=== PATIENT | female | born 1940 | race Asian ===

== ENCOUNTER → 2018-09-13 | Day surgery (SDC) | payer MEDICARE ==
[2018-09-10 11:37] LABS: BASOPHILS # (AUTO) 0.1 (0.0-0.1); BASOPHILS % 0.5 % (0.0-1.0); EOSINOPHILS # (AUTO) 0.2 (0.0-0.4); EOSINOPHILS % 1.1 % (0.0-6.0); HEMATOCRIT 38.7 % (34.2-44.1); HEMOGLOBIN 11.9 g/dL (12.0-16.0); LYMPHOCYTES % 13.9 % (18.0-39.1); MEAN CORPUSCULAR HEMOGLOBIN 26.9 pg (28-32); MEAN CORPUSCULAR HGB CONC 30.7 g/dL (31-35); MEAN CORPUSCULAR VOLUME 87.6 fL (81-99); MONOCYTES # (AUTO) 1.5 (0.2-0.8); NEUTROPHILS # (AUTO) 10.7 (2.1-6.9); NEUTROPHILS % 73.7 % (38.7-80.0); PLATELET COUNT 386 x10e3/uL (140-360); RED BLOOD COUNT 4.42 x10e6/uL (3.6-5.1); RED CELL DISTRIBUTION WIDTH 16.2 % (11.7-14.4)
[2018-09-10 11:53] LABS: ANION GAP 21.2 mmol/L (8-16); CALCIUM 10.5 mg/dL (8.4-10.2); CREATININE, SERUM 1.37 mg/dL (0.57-1.11); POTASSIUM 4.2 mmol/L (3.5-5.1)
--- NOTE | 2018-09-10 12:50 | Diagnostic Imaging Report ---
Exam: KUB - 2 views Clinical History: Preoperative Comparison: None Findings: Pigtail drainage catheter projects over the left mid abdomen. Nonobstructive bowel gas pattern. At least 3 calcifications measuring 5 mm, 8 mm, and 9 mm respectively projecting over the expected course of the left kidney and ureter and possibly represent urinary calculi. Phleboliths within the pelvis. Degenerative changes of the visualized spine. Postoperative fixation of the left proximal femur. Impression: 5, 8, 9 mm calcifications projecting over the expected course of the left kidney and ureter possibly represent urinary calculi. Signed by: Faviola Paz MD on 09/10/2018 12:47 PM
--- NOTE | 2018-09-10 12:51 | Diagnostic Imaging Report ---
EXAMINATION: CHEST 2 VIEWS INDICATION: Pre-operative COMPARISON: None FINDINGS: LINES/TUBES:None LUNGS:The lungs are well-inflated. No focal consolidation or pulmonary edema. PLEURA:No pleural effusion or pneumothorax. MEDIASTINUM:The cardiomediastinal silhouette appears normal in size and shape. Atherosclerotic calcifications of the thoracic aorta. BONES/SOFT TISSUES:No acute osseous injury. ABDOMEN:No free air under the diaphragm. IMPRESSION: No focal pneumonia or pulmonary edema. Signed by: Faviola Paz MD on 09/10/2018 12:48 PM
[~2018-09-13] MED LIST: AMIODARONE HCL200 MG PO; ASPIR 8181 MG PO; DEXAMETHASONE SOD PHOS INJ 4 MG/ML VIAL ONE; ELIQUIS PO; FENTANYL CITRATE/PF 100MCG/2 ML INJ ONE; GENTAMICIN 120MG/NS 100ML 100 ML ONE; GLIPIZIDE5 MG PO; IOPAMIDOL 610MG/1ML 300 MG/ML VIAL IV ONE; LIDOCAINE HCL 2% LOCAL INJ 5 ML SDV VIAL INJ ONE; METFORMIN HCL500 MG PO; NIFEDIPINE ER30 M1 PO; ONDANSETRON HCL INJ 2MG/ML 2ML 2 MG/ML VIAL ONE; PROPOFOL IV EMULSION 10 MG/ML 20 ML VIAL ONE; SEVOFLURANE INHAL SOLN 250 ML PEN BTL ONE
--- OUTSIDE RECORDS SUMMARY | 2018-09-13 06:34 | XMS REPORT ---
[facility] Address Unknown Phone Unavailable Care Team Providers [employer] Name Role Phone JORDEN COLLINS Unavailable Unavailable Payers Payer Name Policy Type Policy Number Effective Date Expiration Date Problems This patient has no known problems. Allergies, Adverse Reactions, Alerts Allergy Name Allergy Type Status Severity Reaction(s) Onset Date Inactive Date Treating Clinician Comments No Known Allergies DA Active U 2018-03-19 00:00:00 No Known Allergies DA Active U 2015-04-04 00:00:00 Medications This patient has no known medications. Results Test Description Test Time Test Comments Text Results Atomic Results Result Comments CHEST 2 VIEWS 2018-09-10 12:47:00 [place] [address] Patient Name: EULALIA CARLSON MR #: [id number] : 1940 Age/Sex: 77/F Req #: [id number] Adm Physician: Ordered by: JORDEN COLLINS MD Report #: [id number] Location: OR Room/Bed: Procedure: [id number] DX/CHEST 2 VIEWS Exam Date: 09/10/18 Exam Time: 1142 REPORT STATUS: Signed EXAMINATION: CHEST 2 VIEWS INDICATION: Pre-operative COMPARISON: None FINDINGS: LINES/TUBES:None LUNGS:The lungs are well-inflated. No focal consolidation or pulmonary edema. PLEURA:No pleural effusion or pneumothorax. MEDIASTINUM:The cardiomediastinal silhouette appears normal in size and shape. Atherosclerotic calcifications of the thoracic aorta. BONES/SOFT TISSUES:No acute osseous injury. ABDOMEN:No free air under the diaphragm. IMPRESSION: No focal pneumonia or pulmonary edema. Signed by: Eloy May MD on 09/10/2018 12:48 PM Dictated By: ELOY MAY MD 124 Transcribed By: VAHID on 09/10/18 124 COPY TO: JORDEN COLLINS MD ABDOMEN-1VIEW (KUB) 2018-09-10 12:44:00 [place] [address] Patient Name: EULALIA CARLSON MR #: [id number] : 1940 Age/Sex: 77/F Req #: [id number] Adm Physician: Ordered by: JORDEN COLLINS MD Report #: [id number] Location: OR Room/Bed: Procedure: [id number] DX/ABDOMEN-1VIEW (KUB) Exam Date: 09/10/18 Exam Time: 1142 REPORT STATUS: Signed Exam: KUB - 2 views Clinical History: Preoperative Comparison: None Findings: Pigtail drainage catheter projects over the left mid abdomen. Nonobstructive bowel gas pattern. At least 3 calcifications measuring 5 mm, 8 mm, and 9 mm respectively projecting over the expected course of the left kidney and ureter and possibly represent urinary calculi. Phleboliths within the pelvis. Degenerative changes of the visualized spine. Postoperative fixation of the left proximal femur. Impression: 5, 8, 9 mm calcifications projecting over the expected course of the left kidney and ureter possibly represent urinary calculi. Signed by: Eloy May MD on 09/10/2018 12:47 PM Dictated By: ELOY MAY MD 1247 Transcribed By: VAHID on 09/10/18 1247 COPY TO: JORDEN COLLINS MD POC Glucose 2018-08-05 16:17:16 Glucose POC (test code=Glucose POC) 65 mg/dL 70-115 If you consider your patient critically ill, the Diana-Accu Check Infrom II meter should not be used for Glucose determination. Draw a venous Glucose and send to the main Lab for analysis. POC [id number] 11:19:47* Test Item Value Reference Range Comments Glucose POC (test code=Glucose POC) 283 mg/dL 70-115 If you consider your patient critically ill, the Diana-Accu Check Infrom II meter should not be used for Glucose determination. Draw a venous Glucose and send to the main Lab for analysis. POC [id number] 07:49:43* Test Item Value Reference Range Comments Glucose POC (test code=Glucose POC) 174 mg/dL 70-115 If you consider your patient critically ill, the Diana-Accu Check Infrom II meter should not be used for Glucose determination. Draw a venous Glucose and send to the main Lab for analysis. Complete Blood Count with [id number] 05:36:01* Test Item Value Reference Range Comments WBC (test code=WBC) 11.2 x10 4.4-10.5 RBC (test code=RBC) 3.55 x10 3.75-5.20 Hgb (test code=Hgb) 9.6 g/dL 12.2-14.8 MCV (test code=MCV) 84.50 fL 80.00-100.00 Hct (test code=Hct) 30.0 % 36.5-44.4 MCHC (test code=MCHC) 32.00 g/dL 32.00-37.50 RDW CV (test code=RDW CV) 16.9 % 11.5-14.5 MCH (test code=MCH) 27.0 pg 27.0-32.5 Platelets (test code=Platelets) 385.0 x10 140.0-440.0 MPV (test code=MPV) 9.7 fL Slide Review (test code=Slide Review) Auto Auto Result created by GL_SJM_SLIDE_REV_AUTO nRBC (test code=nRBC) 0 NRBC Abs (test code=NRBC Abs) 0.00 x10 IPF (test code=IPF) 0 % Automated [id number] 05:36:01* Test Item Value Reference Range Comments Neutro Auto (test code=Neutro Auto) 76.2 % 36.0-70.0 Lymph Auto (test code=Lymph Auto) 9.7 % 12.0-44.0 [place] Auto (test code=[place] Auto) 10.5 % 0.0-11.0 Eos, Auto (test code=Eos, Auto) 2.0 % 0.0-7.0 Basophil Auto (test code=Basophil Auto) 0.4 % 0.0-2.0 Neutro Absolute (test code=Neutro Absolute) 8.6 x10 1.6-7.4 Lymph Absolute (test code=Lymph Absolute) 1.09 x10 .50-4.60 [place] Absolute (test code=[place] Absolute) 1.18 x10 .00-1.20 Eos Absolute (test code=Eos Absolute) 0.22 x10 0.00-0.74 Baso Absolute (test code=Baso Absolute) 0.04 x10 0.00-0.21 IG [id number] 05:36:01* Test Item Value Reference Range Comments IG (test code=IG) 1.2 % 0.0-5.0 IG Abs (test code=IG Abs) 0 x10 Comprehensive Metabolic [id number] 05:29:29* Test Item Value Reference Range Comments Sodium Level (test code=Sodium Level) 142.0 mmol/L 135.0-145.0 Potassium Level (test code=Potassium Level) 3.0 mmol/L 3.5-5.1 Chloride Level (test code=Chloride Level) 101 mmol/L 98-105 CO2 (test code=CO2) 27 mmol/L 22-29 Anion Gap (test code=Anion Gap) 14 mmol/L 7-16 BUN (test code=BUN) 9.20 mg/dL 8.00-23.00 Creatinine Level (test code=Creatinine Level) 0.60 mg/dL 0.50-0.90 BUN/Creat Ratio (test code=BUN/Creat Ratio) 15 Glucose Level (test code=Glucose Level) 163 mg/dL 70-115 Calcium Level (test code=Calcium Level) 8.9 mg/dL 8.3-10.5 Alk Phos (test code=Alk Phos) 68 U/L 35-104 Bilirubin Total (test code=Bilirubin Total) 0.3 mg/dL 0.1-0.9 Albumin Level (test code=Albumin Level) 3.6 g/dL 3.5-5.2 Protein Total (test code=Protein Total) 6.5 g/dL 6.4-8.3 ALT (test code=ALT) 13 U/L 1-33 AST (test code=AST) 13 U/L 1-32 Globulin (test code=Globulin) 2.9 g/dL 2.9-3.1 A/G Ratio (test code=A/G Ratio) 1.2 ratio Comprehensive Metabolic [id number] 05:29:29* Test Item Value Reference Range Comments Sodium Level (test code=Sodium Level) 142.0 mmol/L 135.0-145.0 Potassium Level (test code=Potassium Level) 3.0 mmol/L 3.5-5.1 Chloride Level (test code=Chloride Level) 101 mmol/L 98-105 CO2 (test code=CO2) 27 mmol/L 22-29 Anion Gap (test code=Anion Gap) 14 mmol/L 7-16 BUN (test code=BUN) 9.20 mg/dL 8.00-23.00 Creatinine Level (test code=Creatinine Level) 0.60 mg/dL 0.50-0.90 BUN/Creat Ratio (test code=BUN/Creat Ratio) 15 Glucose Level (test code=Glucose Level) 163 mg/dL 70-115 Calcium Level (test code=Calcium Level) 8.9 mg/dL 8.3-10.5 Alk Phos (test code=Alk Phos) 68 U/L 35-104 Bilirubin Total (test code=Bilirubin Total) 0.3 mg/dL 0.1-0.9 Albumin Level (test code=Albumin Level) 3.6 g/dL 3.5-5.2 Protein Total (test code=Protein Total) 6.5 g/dL 6.4-8.3 ALT (test code=ALT) 13 U/L 1-33 AST (test code=AST) 13 U/L 1-32 Globulin (test code=Globulin) 2.9 g/dL 2.9-3.1 A/G Ratio (test code=A/G Ratio) 1.2 ratio eGFR AA (test code=eGFR AA) >60 mL/min/1.73 m2 eGFR (estimated Glomerular Filtration Rate) is an estimated value, calculated from the patient's serum creatinine using the MDRD equation. It is NOT the patient's actual GFR. The eGFR provides a more clinically useful measure of kidney disease than serum creatinine alone.This calculation takes sex and race into account, if the information is provided. If the race is not provided, and the patient is -[place], multiply by 1.212. If sex is not provided, and the patient is female, multiply by 0.742. Results for patients <18 years of age have not been validated by the MDRD study and should be interpreted with caution. eGFR Result Interpretation:eGFR > or=60 is in the Normal RangeeGFR < 60 may mean kidney diseaseeGFR < 15 may mean kidney failure Ranges recommended by the National Kidney Foundation, http://nkdep.nih.gov Magnesium [id number] 05:29:29* Test Item Value Reference Range Comments Magnesium Level (test code=Magnesium Level) 1.5 mg/dL 1.7-2.5 Comprehensive Metabolic [id number] 05:29:29* Test Item Value Reference Range Comments Sodium Level (test code=Sodium Level) 142.0 mmol/L 135.0-145.0 Potassium Level (test code=Potassium Level) 3.0 mmol/L 3.5-5.1 Chloride Level (test code=Chloride Level) 101 mmol/L 98-105 CO2 (test code=CO2) 27 mmol/L 22-29 Anion Gap (test code=Anion Gap) 14 mmol/L 7-16 BUN (test code=BUN) 9.20 mg/dL 8.00-23.00 Creatinine Level (test code=Creatinine Level) 0.60 mg/dL 0.50-0.90 BUN/Creat Ratio (test code=BUN/Creat Ratio) 15 Glucose Level (test code=Glucose Level) 163 mg/dL 70-115 Calcium Level (test code=Calcium Level) 8.9 mg/dL 8.3-10.5 Alk Phos (test code=Alk Phos) 68 U/L 35-104 Bilirubin Total (test code=Bilirubin Total) 0.3 mg/dL 0.1-0.9 Albumin Level (test code=Albumin Level) 3.6 g/dL 3.5-5.2 Protein Total (test code=Protein Total) 6.5 g/dL 6.4-8.3 ALT (test code=ALT) 13 U/L 1-33 AST (test code=AST) 13 U/L 1-32 Globulin (test code=Globulin) 2.9 g/dL 2.9-3.1 A/G Ratio (test code=A/G Ratio) 1.2 ratio eGFR AA (test code=eGFR AA) >60 mL/min/1.73 m2 eGFR (estimated Glomerular Filtration Rate) is an estimated value, calculated from the patient's serum creatinine using the MDRD equation. It is NOT the patient's actual GFR. The eGFR provides a more clinically useful measure of kidney disease than serum creatinine alone.This calculation takes sex and race into account, if the information is provided. If the race is not provided, and the patient is -[place]aced[place], multiply by 1.212. If sex is not provided, and the patient is female, multiply by 0.742. Results for patients <18 years of age have not been validated by the MDRD study and should be interpreted with caution. eGFR Result Interpretation:eGFR > or=60 is in the Normal RangeeGFR < 60 may mean kidney diseaseeGFR < 15 may mean kidney failure Ranges recommended by the National Kidney Foundation, http://nkdep.nih.gov eGFR Non-AA (test code=eGFR Non-AA) >60.00 mL/min/1.73 m2 eGFR (estimated Glomerular Filtration Rate) is an estimated value, calculated from the patient's serum creatinine using the MDRD equation. It is NOT the patient's actual GFR. The eGFR provides a more clinically useful measure of kidney disease than serum creatinine alone.This calculation takes sex and race into account, if the information is provided. If the race is not provided, and the patient is -[place]aced[place], multiply by 1.212. If sex is not provided, and the patient is female, multiply by 0.742. Results for patients <18 years of age have not been validated by the MDRD study and should be interpreted with caution. eGFR Result Interpretation:eGFR > or=60 is in the Normal RangeeGFR < 60 may mean kidney diseaseeGFR < 15 may mean kidney failure Ranges recommended by the National Kidney Foundation, http://nkdep.nih.gov POC [id number] 20:34:17* Test Item Value Reference Range Comments Glucose POC (test code=Glucose POC) 271 mg/dL 70-115 If you consider your patient critically ill, the Diana-Accu Check Infrom II meter should not be used for Glucose determination. Draw a venous Glucose and send to the main Lab for analysis. POC [id number] 16:22:16* Test Item Value Reference Range Comments Glucose POC (test code=Glucose POC) 116 mg/dL 70-115 Notify RN or MDIf you consider your patient critically ill, the Diana-Accu Check Infrom II meter should not be used for Glucose determination. Draw a venous Glucose and send to the main Lab for analysis. POC [id number] 11:21:22* Test Item Value Reference Range Comments Glucose POC (test code=Glucose POC) 284 mg/dL 70-115 Notify RN or MDIf you consider your patient critically ill, the Diana-Accu Check Infrom II meter should not be used for Glucose determination. Draw a venous Glucose and send to the main Lab for analysis. POC [id number] 07:41:12* Test Item Value Reference Range Comments Glucose POC (test code=Glucose POC) 161 mg/dL 70-115 Notify RN or MDIf you consider your patient critically ill, the Diana-Accu Check Infrom II meter should not be used for Glucose determination. Draw a venous Glucose and send to the main Lab for analysis. Basic Metabolic [id number] 07:04:38* Test Item Value Reference Range Comments Sodium Level (test code=Sodium Level) 143.0 mmol/L 135.0-145.0 Potassium Level (test code=Potassium Level) 3.6 mmol/L 3.5-5.1 Chloride Level (test code=Chloride Level) 106 mmol/L 98-105 CO2 (test code=CO2) 23 mmol/L 22-29 Anion Gap (test code=Anion Gap) 14 mmol/L 7-16 BUN (test code=BUN) 8.60 mg/dL 8.00-23.00 Creatinine Level (test code=Creatinine Level) 0.60 mg/dL 0.50-0.90 BUN/Creat Ratio (test code=BUN/Creat Ratio) 14 Glucose Level (test code=Glucose Level) 162 mg/dL 70-115 Calcium Level (test code=Calcium Level) 8.8 mg/dL 8.3-10.5 Basic Metabolic [id number] 07:04:38* Test Item Value Reference Range Comments Sodium Level (test code=Sodium Level) 143.0 mmol/L 135.0-145.0 Potassium Level (test code=Potassium Level) 3.6 mmol/L 3.5-5.1 Chloride Level (test code=Chloride Level) 106 mmol/L 98-105 CO2 (test code=CO2) 23 mmol/L 22-29 Anion Gap (test code=Anion Gap) 14 mmol/L 7-16 BUN (test code=BUN) 8.60 mg/dL 8.00-23.00 Creatinine Level (test code=Creatinine Level) 0.60 mg/dL 0.50-0.90 BUN/Creat Ratio (test code=BUN/Creat Ratio) 14 Glucose Level (test code=Glucose Level) 162 mg/dL 70-115 Calcium Level (test code=Calcium Level) 8.8 mg/dL 8.3-10.5 eGFR AA (test code=eGFR AA) >60 mL/min/1.73 m2 eGFR (estimated Glomerular Filtration Rate) is an estimated value, calculated from the patient's serum creatinine using the MDRD equation. It is NOT the patient's actual GFR. The eGFR provides a more clinically useful measure of kidney disease than serum creatinine alone.This calculation takes sex and race into account, if the information is provided. If the race is not provided, and the patient is -[place]aced[place], multiply by 1.212. If sex is not provided, and the patient is female, multiply by 0.742. Results for patients <18 years of age have not been validated by the MDRD study and should be interpreted with caution. eGFR Result Interpretation:eGFR > or=60 is in the Normal RangeeGFR < 60 may mean kidney diseaseeGFR < 15 may mean kidney failure Ranges recommended by the National Kidney Foundation, http://nkdep.nih.gov Basic Metabolic [id number] 07:04:38* Test Item Value Reference Range Comments Sodium Level (test code=Sodium Level) 143.0 mmol/L 135.0-145.0 Potassium Level (test code=Potassium Level) 3.6 mmol/L 3.5-5.1 Chloride Level (test code=Chloride Level) 106 mmol/L 98-105 CO2 (test code=CO2) 23 mmol/L 22-29 Anion Gap (test code=Anion Gap) 14 mmol/L 7-16 BUN (test code=BUN) 8.60 mg/dL 8.00-23.00 Creatinine Level (test code=Creatinine Level) 0.60 mg/dL 0.50-0.90 BUN/Creat Ratio (test code=BUN/Creat Ratio) 14 Glucose Level (test code=Glucose Level) 162 mg/dL 70-115 Calcium Level (test code=Calcium Level) 8.8 mg/dL 8.3-10.5 eGFR AA (test code=eGFR AA) >60 mL/min/1.73 m2 eGFR (estimated Glomerular Filtration Rate) is an estimated value, calculated from the patient's serum creatinine using the MDRD equation. It is NOT the patient's actual GFR. The eGFR provides a more clinically useful measure of kidney disease than serum creatinine alone.This calculation takes sex and race into account, if the information is provided. If the race is not provided, and the patient is -[place], multiply by 1.212. If sex is not provided, and the patient is female, multiply by 0.742. Results for patients <18 years of age have not been validated by the MDRD study and should be interpreted with caution. eGFR Result Interpretation:eGFR > or=60 is in the Normal RangeeGFR < 60 may mean kidney diseaseeGFR < 15 may mean kidney failure Ranges recommended by the National Kidney Foundation, http://nkdep.nih.gov eGFR Non-AA (test code=eGFR Non-AA) >60.00 mL/min/1.73 m2 eGFR (estimated Glomerular Filtration Rate) is an estimated value, calculated from the patient's serum creatinine using the MDRD equation. It is NOT the patient's actual GFR. The eGFR provides a more clinically useful measure of kidney disease than serum creatinine alone.This calculation takes sex and race into account, if the information is provided. If the race is not provided, and the patient is -[place], multiply by 1.212. If sex is not provided, and the patient is female, multiply by 0.742. Results for patients <18 years of age have not been validated by the MDRD study and should be interpreted with caution. eGFR Result Interpretation:eGFR > or=60 is in the Normal RangeeGFR < 60 may mean kidney diseaseeGFR < 15 may mean kidney failure Ranges recommended by the National Kidney Foundation, http://nkdep.nih.gov Complete Blood Count with [id number] 06:36:27* Test Item Value Reference Range Comments WBC (test code=WBC) 12.8 x10 4.4-10.5 RBC (test code=RBC) 3.52 x10 3.75-5.20 Hgb (test code=Hgb) 9.5 g/dL 12.2-14.8 MCV (test code=MCV) 87.50 fL 80.00-100.00 Hct (test code=Hct) 30.8 % 36.5-44.4 MCHC (test code=MCHC) 30.80 g/dL 32.00-37.50 RDW CV (test code=RDW CV) 17.2 % 11.5-14.5 MCH (test code=MCH) 27.0 pg 27.0-32.5 Platelets (test code=Platelets) 321.0 x10 140.0-440.0 MPV (test code=MPV) 10.7 fL Slide Review (test code=Slide Review) Auto Auto Result created by GL_SJM_SLIDE_REV_AUTO GL_SJM_XN_RFLX GL_SJM_XN_RFLX nRBC (test code=nRBC) 0 NRBC Abs (test code=NRBC Abs) 0.00 x10 Pos Count XN (test code=Pos Count XN) A IPF (test code=IPF) 0 % Automated [id number] 06:36:27* Test Item Value Reference Range Comments Neutro Auto (test code=Neutro Auto) 80.9 % 36.0-70.0 Lymph Auto (test code=Lymph Auto) 7.3 % 12.0-44.0 [place] Auto (test code=[place] Auto) 10.3 % 0.0-11.0 Eos, Auto (test code=Eos, Auto) 0.7 % 0.0-7.0 Basophil Auto (test code=Basophil Auto) 0.2 % 0.0-2.0 Neutro Absolute (test code=Neutro Absolute) 10.3 x10 1.6-7.4 Lymph Absolute (test code=Lymph Absolute) .93 x10 .50-4.60 [place] Absolute (test code=[place] Absolute) 1.32 x10 .00-1.20 Eos Absolute (test code=Eos Absolute) 0.09 x10 0.00-0.74 Baso Absolute (test code=Baso Absolute) 0.02 x10 0.00-0.21 IG [id number] 06:36:27* Test Item Value Reference Range Comments IG (test code=IG) 0.6 % 0.0-5.0 IG Abs (test code=IG Abs) 0 x10 POC [id number] 20:55:50* Test Item Value Reference Range Comments Glucose POC (test code=Glucose POC) 197 mg/dL 70-115 If you consider your patient critically ill, the Diana-Accu Check Infrom II meter should not be used for Glucose determination. Draw a venous Glucose and send to the main Lab for analysis. POC [id number] 16:27:20* Test Item Value Reference Range Comments Glucose POC (test code=Glucose POC) 168 mg/dL 70-115 If you consider your patient critically ill, the Diana-Accu Check Infrom II meter should not be used for Glucose determination. Draw a venous Glucose and send to the main Lab for analysis. XR Fluoroscopy in Imaging per [id number] 13:30:49Patient: EULALIA CARLSON Date/Time08/03/2018 11:36 CDTReason for ExamsurgeryReportFLUOROSCOPYCLINICAL HISTORY: surgeryComments: Intraoperative fluoroscopy services were provided. A radiologist was not present for the procedure. Selected images demonstrate screw placement across the left hip..Total fluoroscopy time: 20 seconds. Image count: 4IMPRESSION:Fluoroscopy services provided. Please see separate operative report for detailed findings.Location: R16 Final Dictated by: MD Castellanos Adam FDictated DT/TM: 08/03/2018 1:29 pmSigned by: MD Castellanos Adam FSigned (Electronic Signature): 08/03/2018 1:30 pmPOC [id number] 12:21:14* Test Item Value Reference Range Comments Glucose POC (test code=Glucose POC) 152 mg/dL 70-115 If you consider your patient critically ill, the Diana-Accu Check Infrom II meter should not be used for Glucose determination. Draw a venous Glucose and send to the main Lab for analysis. POC [id number] 07:39:15* Test Item Value Reference Range Comments Glucose POC (test code=Glucose POC) 160 mg/dL 70-115 If you consider your patient critically ill, the Diana-Accu Check Infrom II meter should not be used for Glucose determination. Draw a venous Glucose and send to the main Lab for analysis. Comprehensive Metabolic [id number] 06:18:46* Test Item Value Reference Range Comments Sodium Level (test code=Sodium Level) 146.0 mmol/L 135.0-145.0 Potassium Level (test code=Potassium Level) 3.9 mmol/L 3.5-5.1 Chloride Level (test code=Chloride Level) 106 mmol/L 98-105 CO2 (test code=CO2) 28 mmol/L 22-29 Anion Gap (test code=Anion Gap) 12 mmol/L 7-16 BUN (test code=BUN) 8.80 mg/dL 8.00-23.00 Creatinine Level (test code=Creatinine Level) 0.70 mg/dL 0.50-0.90 BUN/Creat Ratio (test code=BUN/Creat Ratio) 13 Glucose Level (test code=Glucose Level) 159 mg/dL 70-115 Calcium Level (test code=Calcium Level) 9.4 mg/dL 8.3-10.5 Alk Phos (test code=Alk Phos) 66 U/L 35-104 Bilirubin Total (test code=Bilirubin Total) 0.4 mg/dL 0.1-0.9 Albumin Level (test code=Albumin Level) 3.9 g/dL 3.5-5.2 Protein Total (test code=Protein Total) 7.1 g/dL 6.4-8.3 ALT (test code=ALT) 15 U/L 1-33 AST (test code=AST) 13 U/L 1-32 Globulin (test code=Globulin) 3.2 g/dL 2.9-3.1 A/G Ratio (test code=A/G Ratio) 1.2 ratio Magnesium [id number] 06:18:46* Test Item Value Reference Range Comments Magnesium Level (test code=Magnesium Level) 1.6 mg/dL 1.7-2.5 Comprehensive Metabolic [id number] 06:18:46* Test Item Value Reference Range Comments Sodium Level (test code=Sodium Level) 146.0 mmol/L 135.0-145.0 Potassium Level (test code=Potassium Level) 3.9 mmol/L 3.5-5.1 Chloride Level (test code=Chloride Level) 106 mmol/L 98-105 CO2 (test code=CO2) 28 mmol/L 22-29 Anion Gap (test code=Anion Gap) 12 mmol/L 7-16 BUN (test code=BUN) 8.80 mg/dL 8.00-23.00 Creatinine Level (test code=Creatinine Level) 0.70 mg/dL 0.50-0.90 BUN/Creat Ratio (test code=BUN/Creat Ratio) 13 Glucose Level (test code=Glucose Level) 159 mg/dL 70-115 Calcium Level (test code=Calcium Level) 9.4 mg/dL 8.3-10.5 Alk Phos (test code=Alk Phos) 66 U/L 35-104 Bilirubin Total (test code=Bilirubin Total) 0.4 mg/dL 0.1-0.9 Albumin Level (test code=Albumin Level) 3.9 g/dL 3.5-5.2 Protein Total (test code=Protein Total) 7.1 g/dL 6.4-8.3 ALT (test code=ALT) 15 U/L 1-33 AST (test code=AST) 13 U/L 1-32 Globulin (test code=Globulin) 3.2 g/dL 2.9-3.1 A/G Ratio (test code=A/G Ratio) 1.2 ratio eGFR AA (test code=eGFR AA) >60 mL/min/1.73 m2 eGFR (estimated Glomerular Filtration Rate) is an estimated value, calculated from the patient's serum creatinine using the MDRD equation. It is NOT the patient's actual GFR. The eGFR provides a more clinically useful measure of kidney disease than serum creatinine alone.This calculation takes sex and race into account, if the information is provided. If the race is not provided, and the patient is -[place], multiply by 1.212. If sex is not provided, and the patient is female, multiply by 0.742. Results for patients <18 years of age have not been validated by the MDRD study and should be interpreted with caution. eGFR Result Interpretation:eGFR > or=60 is in the Normal RangeeGFR < 60 may mean kidney diseaseeGFR < 15 may mean kidney failure Ranges recommended by the National Kidney Foundation, http://nkdep.nih.gov Comprehensive Metabolic [id number] 06:18:46* Test Item Value Reference Range Comments Sodium Level (test code=Sodium Level) 146.0 mmol/L 135.0-145.0 Potassium Level (test code=Potassium Level) 3.9 mmol/L 3.5-5.1 Chloride Level (test code=Chloride Level) 106 mmol/L 98-105 CO2 (test code=CO2) 28 mmol/L 22-29 Anion Gap (test code=Anion Gap) 12 mmol/L 7-16 BUN (test code=BUN) 8.80 mg/dL 8.00-23.00 Creatinine Level (test code=Creatinine Level) 0.70 mg/dL 0.50-0.90 BUN/Creat Ratio (test code=BUN/Creat Ratio) 13 Glucose Level (test code=Glucose Level) 159 mg/dL 70-115 Calcium Level (test code=Calcium Level) 9.4 mg/dL 8.3-10.5 Alk Phos (test code=Alk Phos) 66 U/L 35-104 Bilirubin Total (test code=Bilirubin Total) 0.4 mg/dL 0.1-0.9 Albumin Level (test code=Albumin Level) 3.9 g/dL 3.5-5.2 Protein Total (test code=Protein Total) 7.1 g/dL 6.4-8.3 ALT (test code=ALT) 15 U/L 1-33 AST (test code=AST) 13 U/L 1-32 Globulin (test code=Globulin) 3.2 g/dL 2.9-3.1 A/G Ratio (test code=A/G Ratio) 1.2 ratio eGFR AA (test code=eGFR AA) >60 mL/min/1.73 m2 eGFR (estimated Glomerular Filtration Rate) is an estimated value, calculated from the patient's serum creatinine using the MDRD equation. It is NOT the patient's actual GFR. The eGFR provides a more clinically useful measure of kidney disease than serum creatinine alone.This calculation takes sex and race into account, if the information is provided. If the race is not provided, and the patient is -Maced[place], multiply by 1.212. If sex is not provided, and the patient is female, multiply by 0.742. Results for patients <18 years of age have not been validated by the MDRD study and should be interpreted with caution. eGFR Result Interpretation:eGFR > or=60 is in the Normal RangeeGFR < 60 may mean kidney diseaseeGFR < 15 may mean kidney failure Ranges recommended by the National Kidney Foundation, http://nkdep.nih.gov eGFR Non-AA (test code=eGFR Non-AA) >60.00 mL/min/1.73 m2 eGFR (estimated Glomerular Filtration Rate) is an estimated value, calculated from the patient's serum creatinine using the MDRD equation. It is NOT the patient's actual GFR. The eGFR provides a more clinically useful measure of kidney disease than serum creatinine alone.This calculation takes sex and race into account, if the information is provided. If the race is not provided, and the patient is -Maced[place], multiply by 1.212. If sex is not provided, and the patient is female, multiply by 0.742. Results for patients <18 years of age have not been validated by the MDRD study and should be interpreted with caution. eGFR Result Interpretation:eGFR > or=60 is in the Normal RangeeGFR < 60 may mean kidney diseaseeGFR < 15 may mean kidney failure Ranges recommended by the National Kidney Foundation, http://nkdep.nih.gov Automated [id number] 06:03:39* Test Item Value Reference Range Comments Neutro Auto (test code=Neutro Auto) 79.1 % 36.0-70.0 Lymph Auto (test code=Lymph Auto) 9.8 % 12.0-44.0 [place] Auto (test code=[place] Auto) 8.3 % 0.0-11.0 Eos, Auto (test code=Eos, Auto) 1.6 % 0.0-7.0 Basophil Auto (test code=Basophil Auto) 0.5 % 0.0-2.0 Neutro Absolute (test code=Neutro Absolute) 7.7 x10 1.6-7.4 Lymph Absolute (test code=Lymph Absolute) .95 x10 .50-4.60 [place] Absolute (test code=[place] Absolute) .81 x10 .00-1.20 Eos Absolute (test code=Eos Absolute) 0.16 x10 0.00-0.74 Baso Absolute (test code=Baso Absolute) 0.05 x10 0.00-0.21 IG [id number] 06:03:39* Test Item Value Reference Range Comments IG (test code=IG) 0.7 % 0.0-5.0 IG Abs (test code=IG Abs) 0 x10 Complete Blood Count with [id number] 06:03:38* Test Item Value Reference Range Comments WBC (test code=WBC) 9.7 x10 4.4-10.5 RBC (test code=RBC) 4.07 x10 3.75-5.20 Hgb (test code=Hgb) 11.0 g/dL 12.2-14.8 MCV (test code=MCV) 84.80 fL 80.00-100.00 Hct (test code=Hct) 34.5 % 36.5-44.4 MCHC (test code=MCHC) 31.90 g/dL 32.00-37.50 RDW CV (test code=RDW CV) 17.2 % 11.5-14.5 MCH (test code=MCH) 27.0 pg 27.0-32.5 Platelets (test code=Platelets) 374.0 x10 140.0-440.0 MPV (test code=MPV) 9.6 fL Slide Review (test code=Slide Review) Auto Auto Result created by [email or web address] nRBC (test code=nRBC) 0 NRBC Abs (test code=NRBC Abs) 0.00 x10 IPF (test code=IPF) 0 % XR Hip Complete 2+ Views [id number] 23:35:10Patient: EULALIA CARLSON Date/Time08/02/2018 23:12 CDTReason for ExamTraumaReportAFTER HOURS SERVICE ON: 08/02/2018 11:33 PMLeft Hip, 3 ViewsLocation Code P67Vtollyh: TraumaFindings:Study is limited by osteopenia. There is a suspected femoral neck fracture. There is mild joint space narrowing of the femoral acetabular joint.Impression:Suspected impacted femoral neck fracture. Follow-up CT recommended. Final Dictated by: MD Glover Mohammad TDictated DT/TM: 08/02/2018 11:33 pmSigned by: MD Glover Mohammad TSigned (Electronic Signature): 08/02/2018 11:35 pmCT Angio Abdomen Aorta + [id number] 22:20:03Patient: EULALIA CARLSON Date/Time08/02/2018 20:46 CDTReason for ExamLLE pain, eval for vessel injury vs hip fracture;Pain (please specify)AddendumUpon speaking with the physician, patient history includes falling several days prior, with great difficulty in weightbearing upon the left hip. She reports never having had a fracture at that site in the past. Finding may represent an occult acute fracture. Consider MRI.ReportLocation code: R 16CT Angiogram Of the Abdominal AortaIndication: Aneurysm, aortic dissection.Comparison: NoneTechnique: Axial images were obtained with sagittal, coronal, and 3 dimensional vascular reconstruction. Three-dimensional recon struction of the thoracoabdominal aorta.This exam was performed according to our departmental dose-optimization program, which includes automated exposure contr ol, adjustment of the mA and/or kV according to patient size and/or use of itera tive reconstruction technique.Contrast: 100 cc Omnipaque 350 IV..Findings:Soft t issue masses in the right lower lobe measure up to 3.1 cm in diameter. 6 mm nodu le in the right middle lobe and 4.2 mm nodule in the left lower lobe. No pleural effusion.Single punctate gallstone. Mild sludge may present in the gallbladder. Liver, drenal gland,Liver, bowel, uterus and urinary bladder are unremarkable. Mild levoscoliosis. Disc space narrowing and spondylosis throughout the visualiz ed thoracic and lumbar spine. Severe posterior spondylosis at L4-5 with moderate narrowing of the central canal. Deformity of the left femoral head and femoral neck, consistent with old fracture. No evidence of acute fracture.Moderate left hydronephrosis. Left external nephrostomy tube in place. The pigtail catheter pr ojects over the proximal ureter. Focal cortical thinning at the lateral aspect o f the upper left kidney likely secondary to old infection. The left ureter is di stended and several calculi are present in the pelvic ureter, measuring up to 11 mm in size.Right renal parenchyma is normal in appearance. 2 punctate nonobstru cting right renal calculi.A 4.2 x 3.4 x 3.6 cm mildly lobulated thin-walled cyst ic-appearing structure at the posterior gastric margin contains a few punctate f oci of increased density and a single dot of air. Finding may represent small he rniation of the gastric wall.Abdominal aorta is not distended and tapers in norm al fashion. Mild atherosclerotic involvement. Origins of the superior mesenteric and celiac arteries are clear. Mild calcification at the origin of both renal a rteries. Internal and external iliac arteries are patent. No evidence of dissect ion or aneurysm formation. Common femoral, superficial femoral, deep femoral, po pliteal, anterior tibial, peroneal, and posterior tibial arteries are patent anayeli aterally with no evidence of stenosis.IMPRESSION:1. Several right lower lobe mas ses measuring up to 3.1 cm. Small left lower lobe nodule. Rule out tumor.Exam Da te/Time08/02/2018 20:46 CDTReport2. Left nephrostomy tube. Moderate left hydronep hrosis and hydroureter secondary to large calculi in the pelvic ureter. Upper po le cortical thinning of the left kidney may be secondary to old infection. 2 pun ctate nonobstructing calculi are noted in the right kidney.3. A thin-walled flui d containing structure posterior to the gastric fundus may represent an outpouch ing from the stomach.4. Abdominal aorta and bilateral runoffs essentially unrema rkable. Mild atherosclerotic involvement of the abdominal aorta.5. Single tiny p unctate gallstone.6. Severe degenerative changes of lumbar spine. No evidence of left hip fracture.There is deformity of the left femoral head and neck secondary to old injury. Final Dictated by: MD Kelly Daniel RDictated D T/TM: 08/02/2018 10:18 pmSigned by: MD Kelly Daniel RSigned (Electronic Sig nature): 08/02/2018 10:20 pmReport last revised on 08/02/2018 22:20 CDT by Oneida montenegro MD, Daniel RCT Angio Abdomen Aorta + [id number] 21:22:41Patient: EULALIA CARLSON Date/Time08/02/2018 20:46 CDTReason for ExamLLE pain, eval for vessel injury vs hip fracture;Pain (please specify)ReportLocation code: R 16CT Angiogram Of the Abdominal AortaIndication: Aneurysm, aortic dissection.Comparison: NoneTechniqu e: Axial images were obtained with sagittal, coronal, and 3 dimensional vascular reconstruction. Three-dimensional reconstruction of the thoracoabdominal aorta. This exam was performed according to our departmental dose-optimization program, which includes automated exposure control, adjustment of the mA and/or kV accor ding to patient size and/or use of iterative reconstruction technique.Contrast: 100 cc Omnipaque 350 IV..Findings:Soft tissue masses in the right lower lobe mary sure up to 3.1 cm in diameter. 6 mm nodule in the right middle lobe and 4.2 mm n odule in the left lower lobe. No pleural effusion.Single punctate gallstone. Mil d sludge may present in the gallbladder. Liver, drenal gland,Liver, bowel, uteru s and urinary bladder are unremarkable. Mild levoscoliosis. Disc space narrowing and spondylosis throughout the visualized thoracic and lumbar spine. Severe pos terior spondylosis at L4-5 with moderate narrowing of the central canal. Deformi ty of the left femoral head and femoral neck, consistent with old fracture. No e vidence of acute fracture.Moderate left hydronephrosis. Left external nephrostom y tube in place. The pigtail catheter projects over the proximal ureter. Focal c ortical thinning at the lateral aspect of the upper left kidney likely secondary to old infection. The left ureter is distended and several calculi are present in the pelvic ureter, measuring up to 11 mm in size.Right renal parenchyma is no rmal in appearance. 2 punctate nonobstructing right renal calculi.A 4.2 x 3.4 x 3.6 cm mildly lobulated thin-walled cystic-appearing structure at the posterior gastric margin contains a few punctate foci of increased density and a single do t of air. Finding may represent small herniation of the gastric wall.Abdominal a linda is not distended and tapers in normal fashion. Mild atherosclerotic involve ment. Origins of the superior mesenteric and celiac arteries are clear. Mild fifi cification at the origin of both renal arteries. Internal and external iliac art eries are patent. No evidence of dissection or aneurysm formation. Common femora l, superficial femoral, deep femoral, popliteal, anterior tibial, peroneal, and posterior tibial arteries are patent bilaterally with no evidence of stenosis.IM PRESSION:1. Several right lower lobe masses measuring up to 3.1 cm. Small left l ower lobe nodule. Rule out tumor.2. Left nephrostomy tube. Moderate left hydrone phrosis and hydroureter secondary to large calculi in the pelvic ureter. Upper p ole cortical thinning of the left kidney may be secondary to old infection. 2 pu nctate nonobstructing calculi are noted in the right kidney.Exam Date/Time 019 20:46 CDTReport3. A thin-walled fluid containing structure posterior to the gastric fundus may represent an outpouching from the stomach.4. Abdominal aorta and bilateral runoffs essentially unremarkable. Mild atherosclerotic involvement of the abdominal aorta.5. Single tiny punctate gallstone.6. Severe degenerative changes of lumbar spine. No evidence of left hip fracture.There is deformity of the left femoral head and neck secondary to old injury. Final Dictated by: MD Kelly Daniel RDictated DT/TM: 08/02/2018 8:56 pmSigned by: Gilmer riggs MD, Daniel RSigned (Electronic Signature): 08/02/2018 9:22 pmComprehensive Metabolic [id number] 17:09:16* Test Item Value Reference Range Comments Sodium Level (test code=Sodium Level) 143.0 mmol/L 135.0-145.0 Potassium Level (test code=Potassium Level) 4.3 mmol/L 3.5-5.1 Specimen hemolyzed. K+ results may be spuriously elevated. Recommend specimen recollection. Chloride Level (test code=Chloride Level) 103 mmol/L 98-105 CO2 (test code=CO2) 23 mmol/L 22-29 Anion Gap (test code=Anion Gap) 17 mmol/L 7-16 BUN (test code=BUN) 10.50 mg/dL 8.00-23.00 Creatinine Level (test code=Creatinine Level) 0.80 mg/dL 0.50-0.90 BUN/Creat Ratio (test code=BUN/Creat Ratio) 13 Glucose Level (test code=Glucose Level) 160 mg/dL 70-115 Calcium Level (test code=Calcium Level) 9.6 mg/dL 8.3-10.5 Alk Phos (test code=Alk Phos) 72 U/L 35-104 Bilirubin Total (test code=Bilirubin Total) 0.4 mg/dL 0.1-0.9 Albumin Level (test code=Albumin Level) 4.2 g/dL 3.5-5.2 Protein Total (test code=Protein Total) 8.0 g/dL 6.4-8.3 ALT (test code=ALT) 20 U/L 1-33 AST (test code=AST) 39 U/L 1-32 Specimen Hemolyzed. Globulin (test code=Globulin) 3.8 g/dL 2.9-3.1 A/G Ratio (test code=A/G Ratio) 1.1 ratio Comprehensive Metabolic [id number] 17:09:16* Test Item Value Reference Range Comments Sodium Level (test code=Sodium Level) 143.0 mmol/L 135.0-145.0 Potassium Level (test code=Potassium Level) 4.3 mmol/L 3.5-5.1 Specimen hemolyzed. K+ results may be spuriously elevated. Recommend specimen recollection. Chloride Level (test code=Chloride Level) 103 mmol/L 98-105 CO2 (test code=CO2) 23 mmol/L 22-29 Anion Gap (test code=Anion Gap) 17 mmol/L 7-16 BUN (test code=BUN) 10.50 mg/dL 8.00-23.00 Creatinine Level (test code=Creatinine Level) 0.80 mg/dL 0.50-0.90 BUN/Creat Ratio (test code=BUN/Creat Ratio) 13 Glucose Level (test code=Glucose Level) 160 mg/dL 70-115 Calcium Level (test code=Calcium Level) 9.6 mg/dL 8.3-10.5 Alk Phos (test code=Alk Phos) 72 U/L 35-104 Bilirubin Total (test code=Bilirubin Total) 0.4 mg/dL 0.1-0.9 Albumin Level (test code=Albumin Level) 4.2 g/dL 3.5-5.2 Protein Total (test code=Protein Total) 8.0 g/dL 6.4-8.3 ALT (test code=ALT) 20 U/L 1-33 AST (test code=AST) 39 U/L 1-32 Specimen Hemolyzed. Globulin (test code=Globulin) 3.8 g/dL 2.9-3.1 A/G Ratio (test code=A/G Ratio) 1.1 ratio eGFR AA (test code=eGFR AA) >60 mL/min/1.73 m2 eGFR (estimated Glomerular Filtration Rate) is an estimated value, calculated from the patient's serum creatinine using the MDRD equation. It is NOT the patient's actual GFR. The eGFR provides a more clinically useful measure of kidney disease than serum creatinine alone.This calculation takes sex and race into account, if the information is provided. If the race is not provided, and the patient is -[place]aced[place], multiply by 1.212. If sex is not provided, and the patient is female, multiply by 0.742. Results for patients <18 years of age have not been validated by the MDRD study and should be interpreted with caution. eGFR Result Interpretation:eGFR > or=60 is in the Normal RangeeGFR < 60 may mean kidney diseaseeGFR < 15 may mean kidney failure Ranges recommended by the National Kidney Foundation, http://nkdep.nih.gov Creatine [id number] 17:09:16* Test Item Value Reference Range Comments CK (test code=CK) 145 U/L 26-192 Comprehensive Metabolic [id number] 17:09:16* Test Item Value Reference Range Comments Sodium Level (test code=Sodium Level) 143.0 mmol/L 135.0-145.0 Potassium Level (test code=Potassium Level) 4.3 mmol/L 3.5-5.1 Specimen hemolyzed. K+ results may be spuriously elevated. Recommend specimen recollection. Chloride Level (test code=Chloride Level) 103 mmol/L 98-105 CO2 (test code=CO2) 23 mmol/L 22-29 Anion Gap (test code=Anion Gap) 17 mmol/L 7-16 BUN (test code=BUN) 10.50 mg/dL 8.00-23.00 Creatinine Level (test code=Creatinine Level) 0.80 mg/dL 0.50-0.90 BUN/Creat Ratio (test code=BUN/Creat Ratio) 13 Glucose Level (test code=Glucose Level) 160 mg/dL 70-115 Calcium Level (test code=Calcium Level) 9.6 mg/dL 8.3-10.5 Alk Phos (test code=Alk Phos) 72 U/L 35-104 Bilirubin Total (test code=Bilirubin Total) 0.4 mg/dL 0.1-0.9 Albumin Level (test code=Albumin Level) 4.2 g/dL 3.5-5.2 Protein Total (test code=Protein Total) 8.0 g/dL 6.4-8.3 ALT (test code=ALT) 20 U/L 1-33 AST (test code=AST) 39 U/L 1-32 Specimen Hemolyzed. Globulin (test code=Globulin) 3.8 g/dL 2.9-3.1 A/G Ratio (test code=A/G Ratio) 1.1 ratio eGFR AA (test code=eGFR AA) >60 mL/min/1.73 m2 eGFR (estimated Glomerular Filtration Rate) is an estimated value, calculated from the patient's serum creatinine using the MDRD equation. It is NOT the patient's actual GFR. The eGFR provides a more clinically useful measure of kidney disease than serum creatinine alone.This calculation takes sex and race into account, if the information is provided. If the race is not provided, and the patient is -[place]aced[place], multiply by 1.212. If sex is not provided, and the patient is female, multiply by 0.742. Results for patients <18 years of age have not been validated by the MDRD study and should be interpreted with caution. eGFR Result Interpretation:eGFR > or=60 is in the Normal RangeeGFR < 60 may mean kidney diseaseeGFR < 15 may mean kidney failure Ranges recommended by the National Kidney Foundation, http://nkdep.nih.gov eGFR Non-AA (test code=eGFR Non-AA) >60.00 mL/min/1.73 m2 eGFR (estimated Glomerular Filtration Rate) is an estimated value, calculated from the patient's serum creatinine using the MDRD equation. It is NOT the patient's actual GFR. The eGFR provides a more clinically useful measure of kidney disease than serum creatinine alone.This calculation takes sex and race into account, if the information is provided. If the race is not provided, and the patient is -Maced[place], multiply by 1.212. If sex is not provided, and the patient is female, multiply by 0.742. Results for patients <18 years of age have not been validated by the MDRD study and should be interpreted with caution. eGFR Result Interpretation:eGFR > or=60 is in the Normal RangeeGFR < 60 may mean kidney diseaseeGFR < 15 may mean kidney failure Ranges recommended by the National Kidney Foundation, http://nkdep.nih.gov Prothrombin Time and [id number] 17:07:40* Test Item Value Reference Range Comments Prothrombin Time (test code=Prothrombin Time) 12.2 seconds 9.8-13.4 INR (test code=INR) 1.1 ratio 0.6-1.2 Partial Thromboplastin [id number] 17:07:40* Test Item Value Reference Range Comments Partial Thromboplastin Time (test code=Partial Thromboplastin Time) 30.80 seconds 24.39-37.25 IG [id number] 16:59:50* Test Item Value Reference Range Comments IG (test code=IG) 0.7 % 0.0-5.0 IG Abs (test code=IG Abs) 0 x10 Complete Blood Count with [id number] 16:59:49* Test Item Value Reference Range Comments WBC (test code=WBC) 13.7 x10 4.4-10.5 RBC (test code=RBC) 4.16 x10 3.75-5.20 Hgb (test code=Hgb) 11.4 g/dL 12.2-14.8 Hct (test code=Hct) 35.3 % 36.5-44.4 MCV (test code=MCV) 84.90 fL 80.00-100.00 MCHC (test code=MCHC) 32.30 g/dL 32.00-37.50 RDW CV (test code=RDW CV) 17.2 % 11.5-14.5 MCH (test code=MCH) 27.4 pg 27.0-32.5 Platelets (test code=Platelets) 420.0 x10 140.0-440.0 MPV (test code=MPV) 10.2 fL Slide Review (test code=Slide Review) Auto Auto Result created by GL_[email or web address]_REV_AUTO nRBC (test code=nRBC) 0 NRBC Abs (test code=NRBC Abs) 0.00 x10 IPF (test code=IPF) 0 % Automated [id number] 16:59:49* Test Item Value Reference Range Comments Neutro Auto (test code=Neutro Auto) 82.0 % 36.0-70.0 Lymph Auto (test code=Lymph Auto) 7.7 % 12.0-44.0 [place] Auto (test code=[place] Auto) 7.4 % 0.0-11.0 Eos, Auto (test code=Eos, Auto) 1.8 % 0.0-7.0 Basophil Auto (test code=Basophil Auto) 0.4 % 0.0-2.0 Neutro Absolute (test code=Neutro Absolute) 11.3 x10 1.6-7.4 Lymph Absolute (test code=Lymph Absolute) 1.05 x10 .50-4.60 [place] Absolute (test code=[place] Absolute) 1.01 x10 .00-1.20 Eos Absolute (test code=Eos Absolute) 0.25 x10 0.00-0.74 Baso Absolute (test code=Baso Absolute) 0.05 x10 0.00-0.21 US Lower Ext Venous Duplex [id number] 15:49:54Patient: EULALIA CARLSON Date/Time08/02/2018 15:49 CDTReason for ExamExtremity painReportLeft lower extremity deep venous ultrasound 08/02/2018CLINICAL INDICATION: SwellingCOMPARISON: None availableTECHNIQUE: Grayscale, color Doppler, spectral wave form analysis of the deep venous system of the left lower extremity was performed.LOCATION: R16 FINDINGS:The common femoral, femoral, and popliteal veins are normally compressi ble and demonstrate normal spontaneous phasic wave forms.The visualized calf vei ns are patent.IMPRESSION:No evidence for deep venous thrombus in the left lower extremity. Final Dictated by: MD Santiago Timothy JDictated DT/TM: 08/02/2018 3:49 pmSigned by: MD Santiago Timothy JSigned (Electronic Signature) : 08/02/2018 3:49 pm- PLC NEPHR CATH [id number] 10:57:00 Name: EULALIA CARLSON [facility] : 1940 Age/S: 77 / F [address] [facility] Unit #: [id number] Loc: [place] [address] Phys: Jean-Paul Ruelas MD Acct: [id number] Di s Date: [id number] Status: DIS IN PHONE #: Exam Date: 07/12/2018 0005 FAX #: [phone] Reason: EXAMS: CPT CODE: [id number] [facility] [place] [id number] Fluoro Time: 72 DAP (Gy m2 ): 0.4 Air Kerma (mGy): 2 EXAM: Antegrade nephrostogram and perc utaneous nephrostomy with sonographic and fluoroscopic guidance; conscious sedation; INFORMATION: Left flank pain; grade 3 left hydronephros is and hydroureter, secondary to an obstructing distal ureteral stone. Failure to insert retrograde ureteral stent. TECHNIQUE AND FIND INGS: Conscious sedation start time: 1200 hours; Completion time: 12 22 hours; Under physician supervision 1 mg of Versed and 25 mcg of fentany l were administered intravenously. The patient's heart rate, blood p ressure and pulse oximetry were continuously monitored by a trained regist isis nurse. Physician boku-ox-vqjh sedation time was 22 minutes. Informed consent was obtained and the patient was placed prone on t he procedure table. Ultrasound showed significant dilatation of the collecting system of the kidney with parenchymal atrophy. Conscious sedati on was initiated as described above. The patient's skin in the left flank region was prepped and draped in the usual sterile fashion. Xylocaine was administered and using sonographic guidance a 21-gauge Chiba needle was in serted into the dilated left renal collecting system. A urine sample was collected and was sent to the lab. A small amount of contrast material was then injected opacifying a dilated collecting system and a tortuous, dilated ureter. Using the coaxial AccuStick system no C5 guidewire was in serted, followed by insertion of an 8 Salv[place]orean pigtail catheter. This cathet er was sutured to the skin and connected to a drainage bag. Final co ntrast injection showed good position of this catheter. No complications. IMPRESSION: 1. Successful percutaneous nephrostomy using sonographic and fluoroscopic guidance. 2. Antegrade nephrostogr am confirmed presence of significant hydronephrosis and a left hydrouret er. Fluoroscopy Time: 72 sec CAK : 2 mGy DAP : 0.4 mGy sq cm PAGE 1 Signed Report (CONTINUED) Name: EULALIA CARLSON [facility] : 1940 Age/S: 77 / F [address] [facility] Unit #: [id number] Loc: [place] [address] Phys: Janet Ruelas MD Acct: [id number] Dis Date: [id number] Status: DIS IN PHONE #: [phone] Exam Date: 07/12/2018 0005 FAX #: [phone] Reason: EXAMS: CPT CODE: [id number] [facility] [place] [id number] Fluoro Time: 72 DAP (Gy m2): 0.4 Air Kerma (mGy): 2 <Continued> at 1057 Reported and signed by: Chevy Parks M.D. CC: Janet Ruelas MD; Hitesh Parker MD Technologist: Josefina Ferrari RT(R) Trnscb Date/Time: 07/24/2018 (1057) [email or web address] Orig Print D/T: S: 07/24/2018 (1100) PAGE 2 Signed Report - INJ NEPH NEW ACCESS 2018-07-24 10:57:00 Name: EULALIA CARLSON [facility] : 1940 Age/S: 77 / F [address] Unit #: [id number] Loc: [place] [address] Phys: Janet Ruelas MD Acct: [id number] Dis Date: [id number] Status: DIS IN PHONE #: [phone] Exam Date: 07/12/2018 0005 FAX #: [phone] Reason: EXAMS: CPT CODE: [id number] INJ NEPH NEW ACCESS [id number] Fluoro Time: 72 DAP (Gy m2): 0.4 Air Kerma (mGy): 2 EXAM: Antegrade nephrostogram and percutaneous nephrostomy with sonographic and fluoroscopic guidance; conscious sedation; INFORMATION: Left flank pain; grade 3 left hydronephrosis and hydroureter, secondary to an obstructing distal ureteral stone. Failure to insert retrograde ureteral stent. TECHNIQUE AND FINDINGS: Conscious sedation start time: 1200 hours; Completion time: 1222 hours; Under physician supervision 1 mg of Versed and 25 mcg of fentanyl were administered intravenously. The patient's heart rate, blood pressure and pulse oximetry were continuously monitored by a trained registered nurse. Physician [id number] sedation time was 22 minutes. Informed consent was obtained and the patient was placed prone on the procedure table. Ultrasound showed significant dilatation of the collecting system of the kidney with parenchymal atrophy. Conscious sedation was initiated as described above. The patient's skin in the left flank region was prepped and draped in the usual sterile fashion. Xylocaine was administered and using sonographic guidance a 21-gauge Chiba needle was in serted into the dilated left renal collecting system. A urine sample was collected and was sent to the lab. A small amount of contrast material was then injected opacifying a dilated collecting system and a tortuous, dilated ureter. Using the coaxial AccuStick system no C5 guidewire was in serted, followed by insertion of an 8 Salvadorean pigtail catheter. This cathet er was sutured to the skin and connected to a drainage bag. Final co ntrast injection showed good position of this catheter. No complications. IMPRESSION: 1. Successful percutaneous nephrostomy using sonographic and fluoroscopic guidance. 2. Antegrade nephrostogr am confirmed presence of significant hydronephrosis and a left hydrouret er. Fluoroscopy Time: 72 sec CAK : 2 mGy DAP : 0.4 mGy sq cm PAGE 1 Signed Report (CONTINUED) Name: EULALIA CARLSON [facility] : 1940 Age/S: 77 / F [address] Unit #: [id number] Loc: [place] [address] Phys: Janet Ruelas MD Acct: [id number] Dis Date: [id number] Status: DIS IN PHONE #: [phone] Exam Date: 07/12/2018 0005 FAX #: [phone] Reason: EXAMS: CPT CODE: [id number] INJ NEPH NEW ACCESS [id number] Fluoro Time: 72 DAP (Gy m2): 0.4 Air Kerma (mGy): 2 <Continued> at 1057 Reported and signed by: Chevy Parks M.D. CC: Janet Ruelas MD; Hitesh Parker MD Technologist: Josefina Ferrari RT(R) Trnscb Date/Time: 07/24/2018 (1057) tELVIA Orig Print D/T: S: 07/24/2018 (1100) PAGE 2 Signed Report CBC W/AUTO [id number] 13:47:00* Test Item Value Reference Range Comments WHITE BLOOD CELL (test code=WBC) 11.6 K/mm3 4.5-12.5 RED BLOOD CELL (test code=RBC) 4.61 mill/mm3 3.7-5.2 HEMOGLOBIN (test code=HGB) 12.4 gram/dL 11.5-15.5 HEMATOCRIT (test code=HCT) 40.5 % 36.0-46.0 MEAN CELL VOLUME (test code=MCV) 87.9 fL 80-98 MEAN CELL HGB (test code=MCH) 26.9 picogram 27.0-33.0 MEAN CELL HGB CONCETRATION (test code=MCHC) 30.6 gram/dL 33.0-36.0 RED CELL DISTRIBUTION WIDTH (test code=RDW) 16.6 % 11.6-16.2 RED CELL DISTRIBUTION WIDTH SD (test code=RDW-SD) 50.4 fL 37.0-51.0 PLATELET COUNT (test code=PLT) 251 K/mm3 150-450 MEAN PLATELET VOLUME (test code=MPV) 10.9 fL 6.7-11.0 NEUTROPHIL % (test code=NT%) 78.0 % 39.0-69.0 IMMATURE GRANULOCYTE % (test code=IG%) 0.9 % 0.0-5.0 LYMPHOCYTE % (test code=LY%) 8.3 % 25.0-55.0 MONOCYTE % (test code=MO%) 8.8 % 0.0-10.0 EOSINOPHIL % (test code=EO%) 3.7 % 0.0-5.0 BASOPHIL % (test code=BA%) 0.3 % 0.0-1.0 NUCLEATED RBC % (test code=NRBC%) 0.0 % 0-0 NEUTROPHIL # (test code=NT#) 9.04 K/mm3 1.8-7.7 IMMATURE GRANULOCYTE # (test code=IG#) 0.10 x10 3/uL 0-0.03 LYMPHOCYTE # (test code=LY#) 0.96 K/mm3 1.0-5.0 MONOCYTE # (test code=MO#) 1.02 K/mm3 0-0.8 EOSINOPHIL # (test code=EO#) 0.43 K/mm3 0.0-0.5 BASOPHIL # (test code=BA#) 0.04 K/mm3 0.0-0.2 NUCLEATED RBC # (test code=NRBC#) 0.00 K/mm3 0.0-0.1 CBC W/AUTO [id number] 13:41:00* Test Item Value Reference Range Comments WHITE BLOOD CELL (test code=WBC) K/mm3 4.5-12.5 RED BLOOD CELL (test code=RBC) mill/mm3 3.7-5.2 HEMOGLOBIN (test code=HGB) 12.4 gram/dL 11.5-15.5 HEMATOCRIT (test code=HCT) 40.5 % 36.0-46.0 MEAN CELL VOLUME (test code=MCV) fL 80-98 MEAN CELL HGB (test code=MCH) picogram 27.0-33.0 MEAN CELL HGB CONCETRATION (test code=MCHC) gram/dL 33.0-36.0 RED CELL DISTRIBUTION WIDTH (test code=RDW) % 11.6-16.2 RED CELL DISTRIBUTION WIDTH SD (test code=RDW-SD) fL 37.0-51.0 PLATELET COUNT (test code=PLT) K/mm3 150-450 MEAN PLATELET VOLUME (test code=MPV) fL 6.7-11.0 NEUTROPHIL % (test code=NT%) % 39.0-69.0 IMMATURE GRANULOCYTE % (test code=IG%) % 0.0-5.0 LYMPHOCYTE % (test code=LY%) % 25.0-55.0 MONOCYTE % (test code=MO%) % 0.0-10.0 EOSINOPHIL % (test code=EO%) % 0.0-5.0 BASOPHIL % (test code=BA%) % 0.0-1.0 NEUTROPHIL # (test code=NT#) K/mm3 1.8-7.7 LYMPHOCYTE # (test code=LY#) K/mm3 1.0-5.0 MONOCYTE # (test code=MO#) K/mm3 0-0.8 EOSINOPHIL # (test code=EO#) K/mm3 0.0-0.5 BASOPHIL # (test code=BA#) K/mm3 0.0-0.2 [id number] 11:39:00* Test Item Value Reference Range Comments GLUBED (test code=GLUBED) 251 mg/dL 74-106 Performed by certified strap cutting machine operator at [facility] [id number] 04:53:00* Test Item Value Reference Range Comments GLUBED (test code=GLUBED) 116 mg/dL 74-106 Performed by certified strap cutting machine operator at [facility] [id number] 20:47:00* Test Item Value Reference Range Comments GLUBED (test code=GLUBED) 270 mg/dL 74-106 Performed by certified strap cutting machine operator at [facility] [id number] 16:39:00* Test Item Value Reference Range Comments GLUBED (test code=GLUBED) 146 mg/dL 74-106 Performed by certified strap cutting machine operator at [facility] [id number] 12:42:00* Test Item Value Reference Range Comments GLUBED (test code=GLUBED) 215 mg/dL 74-106 Performed by certified strap cutting machine operator at [facility] [id number] 05:39:00* Test Item Value Reference Range Comments GLUBED (test code=GLUBED) 174 mg/dL 74-106 Performed by certified strap cutting machine operator at [facility] [id number] 20:16:00* Test Item Value Reference Range Comments GLUBED (test code=GLUBED) 120 mg/dL 74-106 Performed by certified strap cutting machine operator at [facility] [id number] 16:37:00* Test Item Value Reference Range Comments GLUBED (test code=GLUBED) 202 mg/dL 74-106 Performed by certified strap cutting machine operator at [facility] [id number] 16:37:00* Test Item Value Reference Range Comments GLUBED (test code=GLUBED) 173 mg/dL 74-106 Performed by certified strap cutting machine operator at [facility] CBC W/AUTO [id number] 07:54:00* Test Item Value Reference Range Comments WHITE BLOOD CELL (test code=WBC) 8.2 K/mm3 4.5-12.5 RED BLOOD CELL (test code=RBC) 4.32 mill/mm3 3.7-5.2 HEMOGLOBIN (test code=HGB) 11.5 gram/dL 11.5-15.5 HEMATOCRIT (test code=HCT) 38.2 % 36.0-46.0 MEAN CELL VOLUME (test code=MCV) 88.4 fL 80-98 MEAN CELL HGB (test code=MCH) 26.6 picogram 27.0-33.0 MEAN CELL HGB CONCETRATION (test code=MCHC) 30.1 gram/dL 33.0-36.0 RED CELL DISTRIBUTION WIDTH (test code=RDW) 15.9 % 11.6-16.2 RED CELL DISTRIBUTION WIDTH SD (test code=RDW-SD) 49.3 fL 37.0-51.0 PLATELET COUNT (test code=PLT) 138 K/mm3 150-450 MEAN PLATELET VOLUME (test code=MPV) 11.8 fL 6.7-11.0 NEUTROPHIL % (test code=NT%) 75.7 % 39.0-69.0 IMMATURE GRANULOCYTE % (test code=IG%) 0.9 % 0.0-5.0 LYMPHOCYTE % (test code=LY%) 9.7 % 25.0-55.0 MONOCYTE % (test code=MO%) 10.6 % 0.0-10.0 EOSINOPHIL % (test code=EO%) 3.0 % 0.0-5.0 BASOPHIL % (test code=BA%) 0.1 % 0.0-1.0 NUCLEATED RBC % (test code=NRBC%) 0.0 % 0-0 NEUTROPHIL # (test code=NT#) 6.21 K/mm3 1.8-7.7 IMMATURE GRANULOCYTE # (test code=IG#) 0.07 x10 3/uL 0-0.03 LYMPHOCYTE # (test code=LY#) 0.80 K/mm3 1.0-5.0 MONOCYTE # (test code=MO#) 0.87 K/mm3 0-0.8 EOSINOPHIL # (test code=EO#) 0.25 K/mm3 0.0-0.5 BASOPHIL # (test code=BA#) 0.01 K/mm3 0.0-0.2 NUCLEATED RBC # (test code=NRBC#) 0.00 K/mm3 0.0-0.1 CBC W/AUTO [id number] 07:47:00* Test Item Value Reference Range Comments WHITE BLOOD CELL (test code=WBC) K/mm3 4.5-12.5 RED BLOOD CELL (test code=RBC) mill/mm3 3.7-5.2 HEMOGLOBIN (test code=HGB) 11.5 gram/dL 11.5-15.5 HEMATOCRIT (test code=HCT) 38.2 % 36.0-46.0 MEAN CELL VOLUME (test code=MCV) fL 80-98 MEAN CELL HGB (test code=MCH) picogram 27.0-33.0 MEAN CELL HGB CONCETRATION (test code=MCHC) gram/dL 33.0-36.0 RED CELL DISTRIBUTION WIDTH (test code=RDW) % 11.6-16.2 RED CELL DISTRIBUTION WIDTH SD (test code=RDW-SD) fL 37.0-51.0 PLATELET COUNT (test code=PLT) K/mm3 150-450 MEAN PLATELET VOLUME (test code=MPV) fL 6.7-11.0 NEUTROPHIL % (test code=NT%) % 39.0-69.0 IMMATURE GRANULOCYTE % (test code=IG%) % 0.0-5.0 LYMPHOCYTE % (test code=LY%) % 25.0-55.0 MONOCYTE % (test code=MO%) % 0.0-10.0 EOSINOPHIL % (test code=EO%) % 0.0-5.0 BASOPHIL % (test code=BA%) % 0.0-1.0 NEUTROPHIL # (test code=NT#) K/mm3 1.8-7.7 LYMPHOCYTE # (test code=LY#) K/mm3 1.0-5.0 MONOCYTE # (test code=MO#) K/mm3 0-0.8 EOSINOPHIL # (test code=EO#) K/mm3 0.0-0.5 BASOPHIL # (test code=BA#) K/mm3 0.0-0.2 COMPREHENSIVE METABOLIC [id number] 07:09:00* Test Item Value Reference Range Comments SODIUM (test code=NA) 139 mmol/L 136-145 POTASSIUM (test code=K) 4.1 mmol/L 3.5-5.1 CHLORIDE (test code=CL) 108.0 mmol/L 98-107 CARBON DIOXIDE (test code=CO2) 21.0 mmol/L 21-32 ANION GAP (test code=GAP) 14.1 10-20 GLUCOSE (test code=GLU) 138 mg/dL 74-106 BLOOD UREA NITROGEN (test code=BUN) 17 mg/dL 7-18 GLOMERULAR FILTRATION RATE (test code=GFR) > 60 mL/min >=60 Estimated GFR by using Modified MDRD formula.Chronic kidney disease is defined as either kidney damageor GFR <60 mL/min/1.73 m2 for >3 months. CREATININE (test code=CREAT) 0.70 mg/dL 0.55-1.02 Note change in reference range due to change in reagent. BUN/CREATININE RATIO (test code=BUN/CREA) 24.3 10-20 TOTAL PROTEIN (test code=PROT) 5.8 gram/dL 6.4-8.2 ALBUMIN (test code=ALB) 2.6 g/dL 3.4-5.0 GLOBULIN (test code=GLOB) 3.2 gram/dL 2.7-4.2 ALBUMIN/GLOBULIN RATIO (test code=A/G) 0.8 0.75-1.50 CALCIUM (test code=CA) 8.0 mg/dL 8.5-10.1 BILIRUBIN TOTAL (test code=BILT) 0.40 mg/dL 0.0-1.0 SGOT/AST (test code=AST) 32 IUnit/L 15-37 SGPT/ALT (test code=ALT) 19 IUnit/L 12-78 ALKALINE PHOSPHATASE TOTAL (test code=ALKP) 54 IUnit/L 45-117 Note change in reference range due to change in reagent. COMPREHENSIVE METABOLIC [id number] 06:56:00* Test Item Value Reference Range Comments SODIUM (test code=NA) 139 mmol/L 136-145 POTASSIUM (test code=K) 4.1 mmol/L 3.5-5.1 CHLORIDE (test code=CL) 108.0 mmol/L 98-107 CARBON DIOXIDE (test code=CO2) mmol/L 21-32 ANION GAP (test code=GAP) 10-20 GLUCOSE (test code=GLU) mg/dL 74-106 BLOOD UREA NITROGEN (test code=BUN) mg/dL 7-18 GLOMERULAR FILTRATION RATE (test code=GFR) mL/min >=60 CREATININE (test code=CREAT) mg/dL 0.55-1.02 BUN/CREATININE RATIO (test code=BUN/CREA) 10-20 TOTAL PROTEIN (test code=PROT) gram/dL 6.4-8.2 ALBUMIN (test code=ALB) g/dL 3.4-5.0 GLOBULIN (test code=GLOB) gram/dL 2.7-4.2 ALBUMIN/GLOBULIN RATIO (test code=A/G) 0.75-1.50 CALCIUM (test code=CA) mg/dL 8.5-10.1 BILIRUBIN TOTAL (test code=BILT) mg/dL 0.0-1.0 SGOT/AST (test code=AST) IUnit/L 15-37 SGPT/ALT (test code=ALT) IUnit/L 12-78 ALKALINE PHOSPHATASE TOTAL (test code=ALKP) IUnit/L 45-117 [id number] 05:35:00* Test Item Value Reference Range Comments GLUBED (test code=GLUBED) 145 mg/dL 74-106 Performed by certified strap cutting machine operator at [facility] [id number] 04:48:00* Test Item Value Reference Range Comments GLUBED (test code=GLUBED) 132 mg/dL 74-106 Performed by certified strap cutting machine operator at [facility] [id number] 20:38:00* Test Item Value Reference Range Comments GLUBED (test code=GLUBED) 166 mg/dL 74-106 Performed by certified strap cutting machine operator at [facility] [id number] 11:52:00* Test Item Value Reference Range Comments GLUBED (test code=GLUBED) 248 mg/dL 74-106 Performed by certified strap cutting machine operator at [facility] [id number] 06:38:00* Test Item Value Reference Range Comments GLUBED (test code=GLUBED) 114 mg/dL 74-106 Performed by certified strap cutting machine operator at [facility] [id number] 21:05:00* Test Item Value Reference Range Comments GLUBED (test code=GLUBED) 185 mg/dL 74-106 Performed by certified strap cutting machine operator at [facility] [id number] 16:54:00* Test Item Value Reference Range Comments GLUBED (test code=GLUBED) 165 mg/dL 74-106 Performed by certified strap cutting machine operator at [facility] [id number] 12:49:00* Test Item Value Reference Range Comments GLUBED (test code=GLUBED) 212 mg/dL 74-106 Performed by certified strap cutting machine operator at [facility] COMPREHENSIVE METABOLIC [id number] 06:34:00* Test Item Value Reference Range Comments SODIUM (test code=NA) 141 mmol/L 136-145 POTASSIUM (test code=K) 3.9 mmol/L 3.5-5.1 CHLORIDE (test code=CL) 109.0 mmol/L 98-107 CARBON DIOXIDE (test code=CO2) 26.0 mmol/L 21-32 ANION GAP (test code=GAP) 9.9 10-20 GLUCOSE (test code=GLU) 282 mg/dL 74-106 BLOOD UREA NITROGEN (test code=BUN) 18 mg/dL 7-18 GLOMERULAR FILTRATION RATE (test code=GFR) 48 mL/min >=60 Estimated GFR by using Modified MDRD formula.Chronic kidney disease is defined as either kidney damageor GFR <60 mL/min/1.73 m2 for >3 months. CREATININE (test code=CREAT) 1.10 mg/dL 0.55-1.02 Note change in reference range due to change in reagent. BUN/CREATININE RATIO (test code=BUN/CREA) 16.4 10-20 TOTAL PROTEIN (test code=PROT) 6.5 gram/dL 6.4-8.2 ALBUMIN (test code=ALB) 2.8 g/dL 3.4-5.0 GLOBULIN (test code=GLOB) 3.7 gram/dL 2.7-4.2 ALBUMIN/GLOBULIN RATIO (test code=A/G) 0.8 0.75-1.50 CALCIUM (test code=CA) 8.8 mg/dL 8.5-10.1 BILIRUBIN TOTAL (test code=BILT) 0.30 mg/dL 0.0-1.0 SGOT/AST (test code=AST) 11 IUnit/L 15-37 SGPT/ALT (test code=ALT) 17 IUnit/L 12-78 ALKALINE PHOSPHATASE TOTAL (test code=ALKP) 54 IUnit/L 45-117 Note change in reference range due to change in reagent. COMPREHENSIVE METABOLIC [id number] 06:29:00* Test Item Value Reference Range Comments SODIUM (test code=NA) 141 mmol/L 136-145 POTASSIUM (test code=K) 3.9 mmol/L 3.5-5.1 CHLORIDE (test code=CL) 109.0 mmol/L 98-107 CARBON DIOXIDE (test code=CO2) mmol/L 21-32 ANION GAP (test code=GAP) 10-20 GLUCOSE (test code=GLU) mg/dL 74-106 BLOOD UREA NITROGEN (test code=BUN) mg/dL 7-18 GLOMERULAR FILTRATION RATE (test code=GFR) mL/min >=60 CREATININE (test code=CREAT) mg/dL 0.55-1.02 BUN/CREATININE RATIO (test code=BUN/CREA) 10-20 TOTAL PROTEIN (test code=PROT) gram/dL 6.4-8.2 ALBUMIN (test code=ALB) g/dL 3.4-5.0 GLOBULIN (test code=GLOB) gram/dL 2.7-4.2 ALBUMIN/GLOBULIN RATIO (test code=A/G) 0.75-1.50 CALCIUM (test code=CA) mg/dL 8.5-10.1 BILIRUBIN TOTAL (test code=BILT) mg/dL 0.0-1.0 SGOT/AST (test code=AST) IUnit/L 15-37 SGPT/ALT (test code=ALT) IUnit/L 12-78 ALKALINE PHOSPHATASE TOTAL (test code=ALKP) IUnit/L 45-117 [id number] 06:26:00* Test Item Value Reference Range Comments GLUBED (test code=GLUBED) 260 mg/dL 74-106 Performed by certified strap cutting machine operator at [facility] CBC W/AUTO [id number] 05:19:00* Test Item Value Reference Range Comments WHITE BLOOD CELL (test code=WBC) 13.1 K/mm3 4.5-12.5 RED BLOOD CELL (test code=RBC) 4.00 mill/mm3 3.7-5.2 HEMOGLOBIN (test code=HGB) 10.6 gram/dL 11.5-15.5 HEMATOCRIT (test code=HCT) 34.3 % 36.0-46.0 MEAN CELL VOLUME (test code=MCV) 85.8 fL 80-98 MEAN CELL HGB (test code=MCH) 26.5 picogram 27.0-33.0 MEAN CELL HGB CONCETRATION (test code=MCHC) 30.9 gram/dL 33.0-36.0 RED CELL DISTRIBUTION WIDTH (test code=RDW) 15.6 % 11.6-16.2 RED CELL DISTRIBUTION WIDTH SD (test code=RDW-SD) 47.3 fL 37.0-51.0 PLATELET COUNT (test code=PLT) 253 K/mm3 150-450 MEAN PLATELET VOLUME (test code=MPV) 10.7 fL 6.7-11.0 NEUTROPHIL % (test code=NT%) 90.1 % 39.0-69.0 IMMATURE GRANULOCYTE % (test code=IG%) 0.6 % 0.0-5.0 LYMPHOCYTE % (test code=LY%) 2.8 % 25.0-55.0 MONOCYTE % (test code=MO%) 6.4 % 0.0-10.0 EOSINOPHIL % (test code=EO%) 0.0 % 0.0-5.0 BASOPHIL % (test code=BA%) 0.1 % 0.0-1.0 NUCLEATED RBC % (test code=NRBC%) 0.0 % 0-0 NEUTROPHIL # (test code=NT#) 11.78 K/mm3 1.8-7.7 IMMATURE GRANULOCYTE # (test code=IG#) 0.08 x10 3/uL 0-0.03 LYMPHOCYTE # (test code=LY#) 0.37 K/mm3 1.0-5.0 MONOCYTE # (test code=MO#) 0.84 K/mm3 0-0.8 EOSINOPHIL # (test code=EO#) 0.00 K/mm3 0.0-0.5 BASOPHIL # (test code=BA#) 0.01 K/mm3 0.0-0.2 NUCLEATED RBC # (test code=NRBC#) 0.00 K/mm3 0.0-0.1 MANUAL DIFF REQUIRED (test code=MDIFF) NO [id number] 21:01:00* Test Item Value Reference Range Comments GLUBED (test code=GLUBED) 231 mg/dL 74-106 Performed by certified strap cutting machine operator at [facility] [id number] 17:08:00* Test Item Value Reference Range Comments GLUBED (test code=GLUBED) 213 mg/dL 74-106 Performed by certified strap cutting machine operator at [facility] LIPID PROFILE (CORONARY RISK)2018-07-12 12:11:00* Test Item Value Reference Range Comments TRIGLYCERIDES (test code=TRIG) 44 mg/dL 20-150 CHOLESTEROL (test code=CHOL) 133 mg/dL 0-200 CHOLESTEROL/HDL RATIO (test code=CHOLHDL) 2.0 RATIO 0-4.9 RISK ASSOCIATED WITH CHOL/HDL RATIOS: Risk Male Female1/2 AVERAGE 3.43 3.27AVERAGE 4.97 4.442X AVERAGE 9.55 7.053X AVERAGE 23.39 11.04 REFERENCE VALUE IS RELATED TO RISK LEVELS ASRECOMMENDED BY THE [facility]. HEART, LUNG, AND BLOOD INST. HDL CHOLESTEROL (test code=HDL) 65 mg/dL 40-60 LIPOPROTEIN LDL (test code=LDL) 66 mg/dL 100-129 Reference Interval: mg/dL mmol/L Optimal <100 <2.6Near/above optimal 100-129 2.6- 3.3Borderline High 130-159 3.4-4.1High 160-189 4.1-4.9Very High >=190 >=4.9=========This LDL result is a direct measurement.========= HEPATIC FUNCTION [id number] 12:11:00* Test Item Value Reference Range Comments TOTAL PROTEIN (test code=PROT) 6.3 gram/dL 6.4-8.2 ALBUMIN (test code=ALB) 3.1 g/dL 3.4-5.0 GLOBULIN (test code=GLOB) 3.2 gram/dL 2.7-4.2 ALBUMIN/GLOBULIN RATIO (test code=A/G) 1.0 0.75-1.50 BILIRUBIN TOTAL (test code=BILT) 0.50 mg/dL 0.0-1.0 BILIRUBIN DIRECT (test code=BILD) 0.13 mg/dL 0.0-0.20 SGOT/AST (test code=AST) 21 IUnit/L 15-37 SGPT/ALT (test code=ALT) 20 IUnit/L 12-78 ALKALINE PHOSPHATASE TOTAL (test code=ALKP) 51 IUnit/L 45-117 Note change in reference range due to change in reagent. [id number] 12:11:00* Test Item Value Reference Range Comments PHOSPHORUS (test code=PHOS) 2.9 mg/dL 2.5-4.9 URIC [id number] 12:11:00* Test Item Value Reference Range Comments URIC ACID (test code=URIC) 5.8 mg/dL 2.6-7.2 [id number] 12:11:00* Test Item Value Reference Range Comments LIPASE (test code=LIP) 132 U/L 73.0-393.0 [id number] 12:11:00* Test Item Value Reference Range Comments MAGNESIUM (test code=MAG) 2.1 mg/dL 1.8-2.4 THYROID STIMULATING [id number] 12:11:00* Test Item Value Reference Range Comments THYROID STIMULATING HORMONE (test code=TSH) 0.335 uIU/mL 0.36-3.74 TSH REFERENCE RANGES: EUTHYROID: 0.35 - 4.3 mIU/mL HYPO : > 5.5 mIU/mL HYPER : < 0.35 mIU/mL VITAMIN D 1,93-[id number] 12:11:00* Test Item Value Reference Range Comments VITAMIN D 1,25-DIHYDROXY (test dtgh=[id number]) 57.0 pg/mL 19.9-79.3 Performed At: [facility] [id number] Sanjai MD Ph:[phone] performed at: [facility] [address] [place] [address] [id number] 10:51:00* Test Item Value Reference Range Comments GLUBED (test code=GLUBED) 188 mg/dL 74-106 Performed by certified strap cutting machine operator at [facility] [id number] 06:46:00* Test Item Value Reference Range Comments GLUBED (test code=GLUBED) 175 mg/dL 74-106 Performed by certified strap cutting machine operator at [facility] COMPREHENSIVE METABOLIC [id number] 06:26:00* Test Item Value Reference Range Comments SODIUM (test code=NA) 142 mmol/L 136-145 POTASSIUM (test code=K) 3.1 mmol/L 3.5-5.1 CHLORIDE (test code=CL) 110.0 mmol/L 98-107 CARBON DIOXIDE (test code=CO2) 26.0 mmol/L 21-32 ANION GAP (test code=GAP) 9.1 10-20 GLUCOSE (test code=GLU) 165 mg/dL 74-106 BLOOD UREA NITROGEN (test code=BUN) 12 mg/dL 7-18 GLOMERULAR FILTRATION RATE (test code=GFR) > 60 mL/min >=60 Estimated GFR by using Modified MDRD formula.Chronic kidney disease is defined as either kidney damageor GFR <60 mL/min/1.73 m2 for >3 months. CREATININE (test code=CREAT) 0.70 mg/dL 0.55-1.02 Note change in reference range due to change in reagent. BUN/CREATININE RATIO (test code=BUN/CREA) 17.1 10-20 TOTAL PROTEIN (test code=PROT) 6.3 gram/dL 6.4-8.2 ALBUMIN (test code=ALB) 2.8 g/dL 3.4-5.0 GLOBULIN (test code=GLOB) 3.5 gram/dL 2.7-4.2 ALBUMIN/GLOBULIN RATIO (test code=A/G) 0.8 0.75-1.50 CALCIUM (test code=CA) 8.5 mg/dL 8.5-10.1 BILIRUBIN TOTAL (test code=BILT) 0.40 mg/dL 0.0-1.0 SGOT/AST (test code=AST) 15 IUnit/L 15-37 SGPT/ALT (test code=ALT) 18 IUnit/L 12-78 ALKALINE PHOSPHATASE TOTAL (test code=ALKP) 54 IUnit/L 45-117 Note change in reference range due to change in reagent. COMPREHENSIVE METABOLIC [id number] 06:08:00* Test Item Value Reference Range Comments SODIUM (test code=NA) 142 mmol/L 136-145 POTASSIUM (test code=K) 3.1 mmol/L 3.5-5.1 CHLORIDE (test code=CL) 110.0 mmol/L 98-107 CARBON DIOXIDE (test code=CO2) mmol/L 21-32 ANION GAP (test code=GAP) 10-20 GLUCOSE (test code=GLU) mg/dL 74-106 BLOOD UREA NITROGEN (test code=BUN) mg/dL 7-18 GLOMERULAR FILTRATION RATE (test code=GFR) mL/min >=60 CREATININE (test code=CREAT) mg/dL 0.55-1.02 BUN/CREATININE RATIO (test code=BUN/CREA) 10-20 TOTAL PROTEIN (test code=PROT) gram/dL 6.4-8.2 ALBUMIN (test code=ALB) g/dL 3.4-5.0 GLOBULIN (test code=GLOB) gram/dL 2.7-4.2 ALBUMIN/GLOBULIN RATIO (test code=A/G) 0.75-1.50 CALCIUM (test code=CA) mg/dL 8.5-10.1 BILIRUBIN TOTAL (test code=BILT) mg/dL 0.0-1.0 SGOT/AST (test code=AST) IUnit/L 15-37 SGPT/ALT (test code=ALT) IUnit/L 12-78 ALKALINE PHOSPHATASE TOTAL (test code=ALKP) IUnit/L 45-117 CBC W/AUTO [id number] 05:53:00* Test Item Value Reference Range Comments WHITE BLOOD CELL (test code=WBC) 14.4 K/mm3 4.5-12.5 RED BLOOD CELL (test code=RBC) 4.11 mill/mm3 3.7-5.2 HEMOGLOBIN (test code=HGB) 10.9 gram/dL 11.5-15.5 HEMATOCRIT (test code=HCT) 35.6 % 36.0-46.0 MEAN CELL VOLUME (test code=MCV) 86.6 fL 80-98 MEAN CELL HGB (test code=MCH) 26.5 picogram 27.0-33.0 MEAN CELL HGB CONCETRATION (test code=MCHC) 30.6 gram/dL 33.0-36.0 RED CELL DISTRIBUTION WIDTH (test code=RDW) 15.3 % 11.6-16.2 RED CELL DISTRIBUTION WIDTH SD (test code=RDW-SD) 47.5 fL 37.0-51.0 PLATELET COUNT (test code=PLT) 256 K/mm3 150-450 MEAN PLATELET VOLUME (test code=MPV) 9.8 fL 6.7-11.0 NEUTROPHIL % (test code=NT%) 85.2 % 39.0-69.0 IMMATURE GRANULOCYTE % (test code=IG%) 1.0 % 0.0-5.0 LYMPHOCYTE % (test code=LY%) 4.1 % 25.0-55.0 MONOCYTE % (test code=MO%) 9.3 % 0.0-10.0 EOSINOPHIL % (test code=EO%) 0.1 % 0.0-5.0 BASOPHIL % (test code=BA%) 0.3 % 0.0-1.0 NUCLEATED RBC % (test code=NRBC%) 0.0 % 0-0 NEUTROPHIL # (test code=NT#) 12.22 K/mm3 1.8-7.7 IMMATURE GRANULOCYTE # (test code=IG#) 0.14 x10 3/uL 0-0.03 LYMPHOCYTE # (test code=LY#) 0.59 K/mm3 1.0-5.0 MONOCYTE # (test code=MO#) 1.34 K/mm3 0-0.8 EOSINOPHIL # (test code=EO#) 0.02 K/mm3 0.0-0.5 BASOPHIL # (test code=BA#) 0.04 K/mm3 0.0-0.2 NUCLEATED RBC # (test code=NRBC#) 0.00 K/mm3 0.0-0.1 MANUAL DIFF REQUIRED (test code=MDIFF) NO [id number] 20:51:00* Test Item Value Reference Range Comments GLUBED (test code=GLUBED) 176 mg/dL 74-106 Performed by certified strap cutting machine operator at [facility] [id number] 16:49:00* Test Item Value Reference Range Comments GLUBED (test code=GLUBED) 164 mg/dL 74-106 Performed by certified strap cutting machine operator at [facility] [id number] 11:11:00* Test Item Value Reference Range Comments GLUBED (test code=GLUBED) 180 mg/dL 74-106 Performed by certified strap cutting machine operator at [facility] [id number] 05:28:00* Test Item Value Reference Range Comments GLUBED (test code=GLUBED) 148 mg/dL 74-106 Performed by certified strap cutting machine operator at [facility] COMPREHENSIVE METABOLIC [id number] 02:12:00* Test Item Value Reference Range Comments SODIUM (test code=NA) 141 mmol/L 136-145 POTASSIUM (test code=K) 3.4 mmol/L 3.5-5.1 CHLORIDE (test code=CL) 111.0 mmol/L 98-107 CARBON DIOXIDE (test code=CO2) 25.0 mmol/L 21-32 ANION GAP (test code=GAP) 8.4 10-20 GLUCOSE (test code=GLU) 154 mg/dL 74-106 BLOOD UREA NITROGEN (test code=BUN) 17 mg/dL 7-18 GLOMERULAR FILTRATION RATE (test code=GFR) > 60 mL/min >=60 Estimated GFR by using Modified MDRD formula.Chronic kidney disease is defined as either kidney damageor GFR <60 mL/min/1.73 m2 for >3 months. CREATININE (test code=CREAT) 0.80 mg/dL 0.55-1.02 Note change in reference range due to change in reagent. BUN/CREATININE RATIO (test code=BUN/CREA) 21.3 10-20 TOTAL PROTEIN (test code=PROT) 6.2 gram/dL 6.4-8.2 ALBUMIN (test code=ALB) 2.9 g/dL 3.4-5.0 GLOBULIN (test code=GLOB) 3.3 gram/dL 2.7-4.2 ALBUMIN/GLOBULIN RATIO (test code=A/G) 0.9 0.75-1.50 CALCIUM (test code=CA) 8.2 mg/dL 8.5-10.1 BILIRUBIN TOTAL (test code=BILT) 0.40 mg/dL 0.0-1.0 SGOT/AST (test code=AST) 19 IUnit/L 15-37 SGPT/ALT (test code=ALT) 20 IUnit/L 12-78 ALKALINE PHOSPHATASE TOTAL (test code=ALKP) 52 IUnit/L 45-117 Note change in reference range due to change in reagent. CBC W/AUTO [id number] 01:56:00* Test Item Value Reference Range Comments WHITE BLOOD CELL (test code=WBC) 13.0 K/mm3 4.5-12.5 RED BLOOD CELL (test code=RBC) 3.72 mill/mm3 3.7-5.2 HEMOGLOBIN (test code=HGB) 9.9 gram/dL 11.5-15.5 HEMATOCRIT (test code=HCT) 32.7 % 36.0-46.0 MEAN CELL VOLUME (test code=MCV) 87.9 fL 80-98 MEAN CELL HGB (test code=MCH) 26.6 picogram 27.0-33.0 MEAN CELL HGB CONCETRATION (test code=MCHC) 30.3 gram/dL 33.0-36.0 RED CELL DISTRIBUTION WIDTH (test code=RDW) 15.1 % 11.6-16.2 RED CELL DISTRIBUTION WIDTH SD (test code=RDW-SD) 47.8 fL 37.0-51.0 PLATELET COUNT (test code=PLT) 253 K/mm3 150-450 MEAN PLATELET VOLUME (test code=MPV) 10.2 fL 6.7-11.0 NEUTROPHIL % (test code=NT%) 76.7 % 39.0-69.0 IMMATURE GRANULOCYTE % (test code=IG%) 0.8 % 0.0-5.0 LYMPHOCYTE % (test code=LY%) 10.3 % 25.0-55.0 MONOCYTE % (test code=MO%) 11.5 % 0.0-10.0 EOSINOPHIL % (test code=EO%) 0.5 % 0.0-5.0 BASOPHIL % (test code=BA%) 0.2 % 0.0-1.0 NUCLEATED RBC % (test code=NRBC%) 0.0 % 0-0 NEUTROPHIL # (test code=NT#) 10.00 K/mm3 1.8-7.7 IMMATURE GRANULOCYTE # (test code=IG#) 0.11 x10 3/uL 0-0.03 LYMPHOCYTE # (test code=LY#) 1.34 K/mm3 1.0-5.0 MONOCYTE # (test code=MO#) 1.50 K/mm3 0-0.8 EOSINOPHIL # (test code=EO#) 0.06 K/mm3 0.0-0.5 BASOPHIL # (test code=BA#) 0.03 K/mm3 0.0-0.2 NUCLEATED RBC # (test code=NRBC#) 0.00 K/mm3 0.0-0.1 [id number] 20:16:00* Test Item Value Reference Range Comments GLUBED (test code=GLUBED) 165 mg/dL 74-106 Performed by certified strap cutting machine operator at [facility] [id number] 16:24:00* Test Item Value Reference Range Comments GLUBED (test code=GLUBED) 156 mg/dL 74-106 Performed by certified strap cutting machine operator at [facility] [id number] 11:58:00* Test Item Value Reference Range Comments GLUBED (test code=GLUBED) 158 mg/dL 74-106 Performed by certified strap cutting machine operator at [facility] B-TYPE NATRIURETIC [id number] 11:24:00* Test Item Value Reference Range Comments B-TYPE NATRIURETIC PEPTIDE (test code=BNP) 412.15 pgram/mL 0-100 LIPID PROFILE (CORONARY RISK)[id number] 11:20:00* Test Item Value Reference Range Comments TRIGLYCERIDES (test code=TRIG) 44 mg/dL 20-150 CHOLESTEROL (test code=CHOL) 133 mg/dL 0-200 CHOLESTEROL/HDL RATIO (test code=CHOLHDL) 2.0 RATIO 0-4.9 RISK ASSOCIATED WITH CHOL/HDL RATIOS: Risk Male Female1/2 AVERAGE 3.43 3.27AVERAGE 4.97 4.442X AVERAGE 9.55 7.053X AVERAGE 23.39 11.04 REFERENCE VALUE IS RELATED TO RISK LEVELS ASRECOMMENDED BY THE [facility]. HEART, LUNG, AND BLOOD INST. HDL CHOLESTEROL (test code=HDL) 65 mg/dL 40-60 LIPOPROTEIN LDL (test code=LDL) 66 mg/dL 100-129 Reference Interval: mg/dL mmol/L Optimal <100 <2.6Near/above optimal 100-129 2.6- 3.3Borderline High 130-159 3.4-4.1High 160-189 4.1-4.9Very High >=190 >=4.9=========This LDL result is a direct measurement.========= HEPATIC FUNCTION [id number] 11:20:00* Test Item Value Reference Range Comments TOTAL PROTEIN (test code=PROT) 6.3 gram/dL 6.4-8.2 ALBUMIN (test code=ALB) 3.1 g/dL 3.4-5.0 GLOBULIN (test code=GLOB) 3.2 gram/dL 2.7-4.2 ALBUMIN/GLOBULIN RATIO (test code=A/G) 1.0 0.75-1.50 BILIRUBIN TOTAL (test code=BILT) 0.50 mg/dL 0.0-1.0 BILIRUBIN DIRECT (test code=BILD) 0.13 mg/dL 0.0-0.20 SGOT/AST (test code=AST) 21 IUnit/L 15-37 SGPT/ALT (test code=ALT) 20 IUnit/L 12-78 ALKALINE PHOSPHATASE TOTAL (test code=ALKP) 51 IUnit/L 45-117 Note change in reference range due to change in reagent. [id number] 11:20:00* Test Item Value Reference Range Comments PHOSPHORUS (test code=PHOS) 2.9 mg/dL 2.5-4.9 URIC [id number] 11:20:00* Test Item Value Reference Range Comments URIC ACID (test code=URIC) 5.8 mg/dL 2.6-7.2 [id number] 11:20:00* Test Item Value Reference Range Comments LIPASE (test code=LIP) 132 U/L 73.0-393.0 [id number] 11:20:00* Test Item Value Reference Range Comments MAGNESIUM (test code=MAG) 2.1 mg/dL 1.8-2.4 THYROID STIMULATING [id number] 11:20:00* Test Item Value Reference Range Comments THYROID STIMULATING HORMONE (test code=TSH) 0.335 uIU/mL 0.36-3.74 TSH REFERENCE RANGES: EUTHYROID: 0.35 - 4.3 mIU/mL HYPO : > 5.5 mIU/mL HYPER : < 0.35 mIU/mL VITAMIN D 1,37-[id number] 11:20:00* Test Item Value Reference Range Comments VITAMIN D 1,25-DIHYDROXY (test pnla=HSKT975) pgram/mL [id number] 10:50:00* Test Item Value Reference Range Comments GLYCOSYLATED HEMOGLOBIN (HA1C) (test code=GLYHGB) 8.0 % HbA1 4.8-6.0 ESTIMATED AVERAGE GLUCOSE (test code=EAG) 183 MG/DL [id number] 08:14:00* Test Item Value Reference Range Comments GLUBED (test code=GLUBED) 161 mg/dL 74-106 Performed by certified strap cutting machine operator at [facility] [id number] 04:44:00* Test Item Value Reference Range Comments GLUBED (test code=GLUBED) 172 mg/dL 74-106 Performed by certified strap cutting machine operator at [facility] B-TYPE NATRIURETIC [id number] 04:24:00* Test Item Value Reference Range Comments B-TYPE NATRIURETIC PEPTIDE (test code=BNP) 555.48 pgram/mL 0-100 Has Patient received Natrecor? [id number] 03:59:00* Test Item Value Reference Range Comments GLYCOSYLATED HEMOGLOBIN (HA1C) (test code=GLYHGB) 8.0 % HbA1 4.8-6.0 ESTIMATED AVERAGE GLUCOSE (test code=EAG) 183 MG/DL CBC W/AUTO [id number] 03:53:00* Test Item Value Reference Range Comments WHITE BLOOD CELL (test code=WBC) 12.0 K/mm3 4.5-12.5 RED BLOOD CELL (test code=RBC) 4.03 mill/mm3 3.7-5.2 HEMOGLOBIN (test code=HGB) 10.5 gram/dL 11.5-15.5 HEMATOCRIT (test code=HCT) 35.2 % 36.0-46.0 MEAN CELL VOLUME (test code=MCV) 87.3 fL 80-98 MEAN CELL HGB (test code=MCH) 26.1 picogram 27.0-33.0 MEAN CELL HGB CONCETRATION (test code=MCHC) 29.8 gram/dL 33.0-36.0 RED CELL DISTRIBUTION WIDTH (test code=RDW) 14.9 % 11.6-16.2 RED CELL DISTRIBUTION WIDTH SD (test code=RDW-SD) 47.2 fL 37.0-51.0 PLATELET COUNT (test code=PLT) 261 K/mm3 150-450 MEAN PLATELET VOLUME (test code=MPV) 10.6 fL 6.7-11.0 NEUTROPHIL % (test code=NT%) 72.8 % 39.0-69.0 IMMATURE GRANULOCYTE % (test code=IG%) 0.6 % 0.0-5.0 LYMPHOCYTE % (test code=LY%) 15.6 % 25.0-55.0 MONOCYTE % (test code=MO%) 10.2 % 0.0-10.0 EOSINOPHIL % (test code=EO%) 0.6 % 0.0-5.0 BASOPHIL % (test code=BA%) 0.2 % 0.0-1.0 NUCLEATED RBC % (test code=NRBC%) 0.0 % 0-0 NEUTROPHIL # (test code=NT#) 8.75 K/mm3 1.8-7.7 IMMATURE GRANULOCYTE # (test code=IG#) 0.07 x10 3/uL 0-0.03 LYMPHOCYTE # (test code=LY#) 1.87 K/mm3 1.0-5.0 MONOCYTE # (test code=MO#) 1.22 K/mm3 0-0.8 EOSINOPHIL # (test code=EO#) 0.07 K/mm3 0.0-0.5 BASOPHIL # (test code=BA#) 0.03 K/mm3 0.0-0.2 NUCLEATED RBC # (test code=NRBC#) 0.00 K/mm3 0.0-0.1 MANUAL DIFF REQUIRED (test code=MDIFF) NO, ONLY SCAN NEEDED DIFFERENTIAL [id number] 03:53:00* Test Item Value Reference Range Comments STAIN ACCEPTABILITY (test code=STN ACCEPTABLE) STAIN ACCEPTABLE POIKILOCYTOSIS (test code=POIK) 3+ ROULEAUX (test code=ROU) SLIGHT PLATELET ESTIMATE (test code=PLTEST) ADEQUATE PLATELET MORPHOLOGY (test code=PLTMORPH) NORMAL THROMBOPLASTIN TIME [id number] 03:31:00* Test Item Value Reference Range Comments THROMBOPLASTIN TIME PARTIAL (test code=PTT) 30.6 seconds 25.0-36.5 IS PATIENT ON ANTICOAGULANTS? [id number] 03:28:00* Test Item Value Reference Range Comments CKMB (test code=CKMBT) 1.1 ng/mL 0-6.0 [id number] 03:28:00* Test Item Value Reference Range Comments TROPONIN-I (test code=TROPI) 0.026 ng/mL 0-0.045 COMPREHENSIVE METABOLIC [id number] 03:24:00* Test Item Value Reference Range Comments SODIUM (test code=NA) 143 mmol/L 136-145 POTASSIUM (test code=K) 3.4 mmol/L 3.5-5.1 CHLORIDE (test code=CL) 113.0 mmol/L 98-107 CARBON DIOXIDE (test code=CO2) 20.0 mmol/L 21-32 ANION GAP (test code=GAP) 13.4 10-20 GLUCOSE (test code=GLU) 173 mg/dL 74-106 BLOOD UREA NITROGEN (test code=BUN) 23 mg/dL 7-18 GLOMERULAR FILTRATION RATE (test code=GFR) 60 mL/min >=60 Estimated GFR by using Modified MDRD formula.Chronic kidney disease is defined as either kidney damageor GFR <60 mL/min/1.73 m2 for >3 months. CREATININE (test code=CREAT) 0.90 mg/dL 0.55-1.02 Note change in reference range due to change in reagent. BUN/CREATININE RATIO (test code=BUN/CREA) 25.6 10-20 TOTAL PROTEIN (test code=PROT) 6.4 gram/dL 6.4-8.2 ALBUMIN (test code=ALB) 3.1 g/dL 3.4-5.0 GLOBULIN (test code=GLOB) 3.3 gram/dL 2.7-4.2 ALBUMIN/GLOBULIN RATIO (test code=A/G) 0.9 0.75-1.50 CALCIUM (test code=CA) 8.4 mg/dL 8.5-10.1 BILIRUBIN TOTAL (test code=BILT) 0.40 mg/dL 0.0-1.0 SGOT/AST (test code=AST) 12 IUnit/L 15-37 SGPT/ALT (test code=ALT) 18 IUnit/L 12-78 ALKALINE PHOSPHATASE TOTAL (test code=ALKP) 53 IUnit/L 45-117 Note change in reference range due to change in reagent. CBC W/AUTO [id number] 03:22:00* Test Item Value Reference Range Comments WHITE BLOOD CELL (test code=WBC) 12.0 K/mm3 4.5-12.5 RED BLOOD CELL (test code=RBC) 4.03 mill/mm3 3.7-5.2 HEMOGLOBIN (test code=HGB) 10.5 gram/dL 11.5-15.5 HEMATOCRIT (test code=HCT) 35.2 % 36.0-46.0 MEAN CELL VOLUME (test code=MCV) 87.3 fL 80-98 MEAN CELL HGB (test code=MCH) 26.1 picogram 27.0-33.0 MEAN CELL HGB CONCETRATION (test code=MCHC) 29.8 gram/dL 33.0-36.0 RED CELL DISTRIBUTION WIDTH (test code=RDW) 14.9 % 11.6-16.2 RED CELL DISTRIBUTION WIDTH SD (test code=RDW-SD) 47.2 fL 37.0-51.0 PLATELET COUNT (test code=PLT) 261 K/mm3 150-450 MEAN PLATELET VOLUME (test code=MPV) 10.6 fL 6.7-11.0 NEUTROPHIL % (test code=NT%) 72.8 % 39.0-69.0 IMMATURE GRANULOCYTE % (test code=IG%) 0.6 % 0.0-5.0 LYMPHOCYTE % (test code=LY%) 15.6 % 25.0-55.0 MONOCYTE % (test code=MO%) 10.2 % 0.0-10.0 EOSINOPHIL % (test code=EO%) 0.6 % 0.0-5.0 BASOPHIL % (test code=BA%) 0.2 % 0.0-1.0 NUCLEATED RBC % (test code=NRBC%) 0.0 % 0-0 NEUTROPHIL # (test code=NT#) 8.75 K/mm3 1.8-7.7 IMMATURE GRANULOCYTE # (test code=IG#) 0.07 x10 3/uL 0-0.03 LYMPHOCYTE # (test code=LY#) 1.87 K/mm3 1.0-5.0 MONOCYTE # (test code=MO#) 1.22 K/mm3 0-0.8 EOSINOPHIL # (test code=EO#) 0.07 K/mm3 0.0-0.5 BASOPHIL # (test code=BA#) 0.03 K/mm3 0.0-0.2 NUCLEATED RBC # (test code=NRBC#) 0.00 K/mm3 0.0-0.1 MANUAL DIFF REQUIRED (test code=MDIFF) NO, ONLY SCAN NEEDED DIFFERENTIAL [id number] 03:22:00* Test Item Value Reference Range Comments STAIN ACCEPTABILITY (test code=STN ACCEPTABLE) CABOT RINGS (test code=CAB) MORPHOLOGY COMMENT (test code=MOC) PLATELET ESTIMATE (test code=PLTEST) PLATELET MORPHOLOGY (test code=PLTMORPH) CBC W/AUTO [id number] 03:22:00* Test Item Value Reference Range Comments WHITE BLOOD CELL (test code=WBC) 12.0 K/mm3 4.5-12.5 RED BLOOD CELL (test code=RBC) 4.03 mill/mm3 3.7-5.2 HEMOGLOBIN (test code=HGB) 10.5 gram/dL 11.5-15.5 HEMATOCRIT (test code=HCT) 35.2 % 36.0-46.0 MEAN CELL VOLUME (test code=MCV) 87.3 fL 80-98 MEAN CELL HGB (test code=MCH) 26.1 picogram 27.0-33.0 MEAN CELL HGB CONCETRATION (test code=MCHC) 29.8 gram/dL 33.0-36.0 RED CELL DISTRIBUTION WIDTH (test code=RDW) 14.9 % 11.6-16.2 RED CELL DISTRIBUTION WIDTH SD (test code=RDW-SD) 47.2 fL 37.0-51.0 PLATELET COUNT (test code=PLT) 261 K/mm3 150-450 MEAN PLATELET VOLUME (test code=MPV) 10.6 fL 6.7-11.0 NEUTROPHIL % (test code=NT%) 72.8 % 39.0-69.0 IMMATURE GRANULOCYTE % (test code=IG%) 0.6 % 0.0-5.0 LYMPHOCYTE % (test code=LY%) 15.6 % 25.0-55.0 MONOCYTE % (test code=MO%) 10.2 % 0.0-10.0 EOSINOPHIL % (test code=EO%) 0.6 % 0.0-5.0 BASOPHIL % (test code=BA%) 0.2 % 0.0-1.0 NUCLEATED RBC % (test code=NRBC%) 0.0 % 0-0 NEUTROPHIL # (test code=NT#) 8.75 K/mm3 1.8-7.7 IMMATURE GRANULOCYTE # (test code=IG#) 0.07 x10 3/uL 0-0.03 LYMPHOCYTE # (test code=LY#) 1.87 K/mm3 1.0-5.0 MONOCYTE # (test code=MO#) 1.22 K/mm3 0-0.8 EOSINOPHIL # (test code=EO#) 0.07 K/mm3 0.0-0.5 BASOPHIL # (test code=BA#) 0.03 K/mm3 0.0-0.2 NUCLEATED RBC # (test code=NRBC#) 0.00 K/mm3 0.0-0.1 MANUAL DIFF REQUIRED (test code=MDIFF) NO, ONLY SCAN NEEDED DIFFERENTIAL [id number] 03:22:00* Test Item Value Reference Range Comments STAIN ACCEPTABILITY (test code=STN ACCEPTABLE) MORPHOLOGY COMMENT (test code=MOC) PLATELET ESTIMATE (test code=PLTEST) PLATELET MORPHOLOGY (test code=PLTMORPH) CBC W/AUTO [id number] 03:21:00* Test Item Value Reference Range Comments WHITE BLOOD CELL (test code=WBC) 12.0 K/mm3 4.5-12.5 RED BLOOD CELL (test code=RBC) 4.03 mill/mm3 3.7-5.2 HEMOGLOBIN (test code=HGB) 10.5 gram/dL 11.5-15.5 HEMATOCRIT (test code=HCT) 35.2 % 36.0-46.0 MEAN CELL VOLUME (test code=MCV) 87.3 fL 80-98 MEAN CELL HGB (test code=MCH) 26.1 picogram 27.0-33.0 MEAN CELL HGB CONCETRATION (test code=MCHC) 29.8 gram/dL 33.0-36.0 RED CELL DISTRIBUTION WIDTH (test code=RDW) 14.9 % 11.6-16.2 RED CELL DISTRIBUTION WIDTH SD (test code=RDW-SD) 47.2 fL 37.0-51.0 PLATELET COUNT (test code=PLT) 261 K/mm3 150-450 MEAN PLATELET VOLUME (test code=MPV) 10.6 fL 6.7-11.0 NEUTROPHIL % (test code=NT%) 72.8 % 39.0-69.0 IMMATURE GRANULOCYTE % (test code=IG%) 0.6 % 0.0-5.0 LYMPHOCYTE % (test code=LY%) 15.6 % 25.0-55.0 MONOCYTE % (test code=MO%) 10.2 % 0.0-10.0 EOSINOPHIL % (test code=EO%) 0.6 % 0.0-5.0 BASOPHIL % (test code=BA%) 0.2 % 0.0-1.0 NUCLEATED RBC % (test code=NRBC%) 0.0 % 0-0 NEUTROPHIL # (test code=NT#) 8.75 K/mm3 1.8-7.7 IMMATURE GRANULOCYTE # (test code=IG#) 0.07 x10 3/uL 0-0.03 LYMPHOCYTE # (test code=LY#) 1.87 K/mm3 1.0-5.0 MONOCYTE # (test code=MO#) 1.22 K/mm3 0-0.8 EOSINOPHIL # (test code=EO#) 0.07 K/mm3 0.0-0.5 BASOPHIL # (test code=BA#) 0.03 K/mm3 0.0-0.2 NUCLEATED RBC # (test code=NRBC#) 0.00 K/mm3 0.0-0.1 MANUAL DIFF REQUIRED (test code=MDIFF) NO, ONLY SCAN NEEDED DIFFERENTIAL [id number] 03:21:00* Test Item Value Reference Range Comments STAIN ACCEPTABILITY (test code=STN ACCEPTABLE) CABOT RINGS (test code=CAB) MORPHOLOGY COMMENT (test code=MOC) PLATELET ESTIMATE (test code=PLTEST) PLATELET MORPHOLOGY (test code=PLTMORPH) CBC W/AUTO [id number] 03:21:00* Test Item Value Reference Range Comments WHITE BLOOD CELL (test code=WBC) 12.0 K/mm3 4.5-12.5 RED BLOOD CELL (test code=RBC) 4.03 mill/mm3 3.7-5.2 HEMOGLOBIN (test code=HGB) 10.5 gram/dL 11.5-15.5 HEMATOCRIT (test code=HCT) 35.2 % 36.0-46.0 MEAN CELL VOLUME (test code=MCV) 87.3 fL 80-98 MEAN CELL HGB (test code=MCH) 26.1 picogram 27.0-33.0 MEAN CELL HGB CONCETRATION (test code=MCHC) 29.8 gram/dL 33.0-36.0 RED CELL DISTRIBUTION WIDTH (test code=RDW) 14.9 % 11.6-16.2 RED CELL DISTRIBUTION WIDTH SD (test code=RDW-SD) 47.2 fL 37.0-51.0 PLATELET COUNT (test code=PLT) 261 K/mm3 150-450 MEAN PLATELET VOLUME (test code=MPV) 10.6 fL 6.7-11.0 NEUTROPHIL % (test code=NT%) 72.8 % 39.0-69.0 IMMATURE GRANULOCYTE % (test code=IG%) 0.6 % 0.0-5.0 LYMPHOCYTE % (test code=LY%) 15.6 % 25.0-55.0 MONOCYTE % (test code=MO%) 10.2 % 0.0-10.0 EOSINOPHIL % (test code=EO%) 0.6 % 0.0-5.0 BASOPHIL % (test code=BA%) 0.2 % 0.0-1.0 NUCLEATED RBC % (test code=NRBC%) 0.0 % 0-0 NEUTROPHIL # (test code=NT#) 8.75 K/mm3 1.8-7.7 IMMATURE GRANULOCYTE # (test code=IG#) 0.07 x10 3/uL 0-0.03 LYMPHOCYTE # (test code=LY#) 1.87 K/mm3 1.0-5.0 MONOCYTE # (test code=MO#) 1.22 K/mm3 0-0.8 EOSINOPHIL # (test code=EO#) 0.07 K/mm3 0.0-0.5 BASOPHIL # (test code=BA#) 0.03 K/mm3 0.0-0.2 NUCLEATED RBC # (test code=NRBC#) 0.00 K/mm3 0.0-0.1 MANUAL DIFF REQUIRED (test code=MDIFF) NO, ONLY SCAN NEEDED DIFFERENTIAL [id number] 03:21:00* Test Item Value Reference Range Comments STAIN ACCEPTABILITY (test code=STN ACCEPTABLE) CABOT RINGS (test code=CAB) MORPHOLOGY COMMENT (test code=MOC) PLATELET ESTIMATE (test code=PLTEST) PLATELET MORPHOLOGY (test code=PLTMORPH) COMPREHENSIVE METABOLIC [id number] 03:16:00* Test Item Value Reference Range Comments SODIUM (test code=NA) 143 mmol/L 136-145 POTASSIUM (test code=K) 3.4 mmol/L 3.5-5.1 CHLORIDE (test code=CL) 113.0 mmol/L 98-107 CARBON DIOXIDE (test code=CO2) mmol/L 21-32 ANION GAP (test code=GAP) 10-20 GLUCOSE (test code=GLU) mg/dL 74-106 BLOOD UREA NITROGEN (test code=BUN) mg/dL 7-18 GLOMERULAR FILTRATION RATE (test code=GFR) mL/min >=60 CREATININE (test code=CREAT) mg/dL 0.55-1.02 BUN/CREATININE RATIO (test code=BUN/CREA) 10-20 TOTAL PROTEIN (test code=PROT) gram/dL 6.4-8.2 ALBUMIN (test code=ALB) g/dL 3.4-5.0 GLOBULIN (test code=GLOB) gram/dL 2.7-4.2 ALBUMIN/GLOBULIN RATIO (test code=A/G) 0.75-1.50 CALCIUM (test code=CA) mg/dL 8.5-10.1 BILIRUBIN TOTAL (test code=BILT) mg/dL 0.0-1.0 SGOT/AST (test code=AST) IUnit/L 15-37 SGPT/ALT (test code=ALT) IUnit/L 12-78 ALKALINE PHOSPHATASE TOTAL (test code=ALKP) IUnit/L 45-117 [id number] 23:26:00* Test Item Value Reference Range Comments GLUBED (test code=GLUBED) 169 mg/dL 74-106 Performed by certified strap cutting machine operator at [facility] [id number] 17:09:00* Test Item Value Reference Range Comments GLUBED (test code=GLUBED) 123 mg/dL 74-106 Performed by certified strap cutting machine operator at [facility] [id number] 14:06:00* Test Item Value Reference Range Comments GLUBED (test code=GLUBED) 171 mg/dL 74-106 Performed by certified strap cutting machine operator at [facility] URINALYSIS [id number] 00:53:00* Test Item Value Reference Range Comments UA COLOR (test code=COLU) YELLOW YELLOW UA APPEARANCE (test code=APPU) CLEAR CLEAR UA GLUCOSE DIPSTICK (test code=DGLUU) 150-200 (2+) mg/dL NEGATIVE UA BILIRUBIN DIPSTICK (test code=BILU) NEGATIVE NEGATIVE UA KETONE DIPSTICK (test code=KETU) TRACE mg/dL NEGATIVE UA SPECIFIC GRAVITY (test code=SGU) 1.010 1.001-1.035 UA BLOOD DIPSTICK (test code=CLAUDIA) TRACE NEGATIVE UA PH DIPSTICK (test code=NATALIE) 6.5 5.0-8.0 UA PROTEIN DIPSTICK (test code=PROU) NEGATIVE mg/dL Neg-15 UA UROBILINIOGEN DIPSTICK (test code=URO) 0.2 mg/dL 0.0-0.2 UA NITRITE DIPSTICK (test code=ADE) NEGATIVE NEGATIVE UA LEUKOCYTE ESTERASE W REFLEX (test code=LEUUR) NEGATIVE NEGATIVE UA WBC (test code=WBCU) 0-5 per HPF 0-5 UA RBC (test code=RBCU) 0-3 per HPF 0-5 UA EPITHELIAL CELLS (test code=EPIU) Moderate (5-10/hpf) per HPF Few UA BACTERIA (test code=BACU) FEW per HPF NONE Urine Source? Clean CatchURINALYSIS [id number] 00:43:00* Test Item Value Reference Range Comments UA COLOR (test code=COLU) YELLOW YELLOW UA APPEARANCE (test code=APPU) CLEAR CLEAR UA GLUCOSE DIPSTICK (test code=DGLUU) 150-200 (2+) mg/dL NEGATIVE UA BILIRUBIN DIPSTICK (test code=BILU) NEGATIVE NEGATIVE UA KETONE DIPSTICK (test code=KETU) TRACE mg/dL NEGATIVE UA SPECIFIC GRAVITY (test code=SGU) 1.010 1.001-1.035 UA BLOOD DIPSTICK (test code=CLAUDIA) TRACE NEGATIVE UA PH DIPSTICK (test code=NATALIE) 6.5 5.0-8.0 UA PROTEIN DIPSTICK (test code=PROU) NEGATIVE mg/dL Neg-15 UA UROBILINIOGEN DIPSTICK (test code=URO) 0.2 mg/dL 0.0-0.2 UA NITRITE DIPSTICK (test code=ADE) NEGATIVE NEGATIVE UA LEUKOCYTE ESTERASE W REFLEX (test code=LEUUR) NEGATIVE NEGATIVE UA WBC (test code=WBCU) per HPF 0-5 UA RBC (test code=RBCU) per HPF 0-5 UA EPITHELIAL CELLS (test code=EPIU) per HPF Few UA BACTERIA (test code=BACU) per HPF NONE Urine Source? Clean Catch- CT ABD PELVIS W/O [id number] 22:32:00 Name: EULALIA CARLSON [facility] : 1940 Age/S: 77 / F [address] Unit #: [id number] Loc: [place] [address] Phys: CANDACE ALEXANDRA MD Acct: [id number] Di s Date: Status: PRE ER PHONE #: Exam Date: 07/08/2018 2210 FAX #: Reason: vomiting EXAMS: CPT CODE: [id number] CT ABD PELVIS W/O CONT [id number] EXAM: CT of the abdomen a nd pelvis without contrast; INFORMATION: Hypertension, vomiting; TECHNIQUE AND FINDINGS: CT dose reduction protocol; 5 mm cuts through the abdomen and pelvis without contrast; renal stone protoc ol; There is massive dilatation of the left renal collecting system and a tortuous left ureter. This is caused by a densely calcified 10 mm s tone in the distal left ureter. Multiple additional smaller left ureteral stones are seen. There is significant parenchymal atrophy of the left kid gisel and there is a parenchymal calcification posteriorly. The right kidney is of normal size and shape. It shows several noncalcified calycea l stones, ranging in size from 1 to 4 mm. There is no evidence of right-s ided hydronephrosis or hydroureter. Liver and spleen are of normal size an d shape and without focal lesions. No abnormalities of the biliary s ystem. Atrophic pancreas. 8mm nodule in the left adrenal gland; norm al right adrenal gland. No acute bowel abnormalities. Appendicoliths are seen but the appendix is not dilated and there are no inflammatory changes Uterine calcifications; no pelvic mass lesions. Calcified plaques in the abdominal aorta and iliac arteries. A 3 cm masslike density is seen posteriorly in the right lower lobe and additional nodular lesions are see n involving the inferior aspect of the right hilum. Patchy groundgla ss opacities are seen in the left lower lobe. IMPRESSION: 1. Grade 3 hydronephrosis of the left kidney and hydroureter caused by a large obstructing distal stone. Additional smaller ureteral stones on the left. 2. Multiple nonobstructing calyceal stones in the right ki dney. 3. Diverticulosis of the colon, with at evidence of diverticuliti s. 4. Small left adrenal nodule, probably representing an incidental adenoma. 5. Masslike lesion in the right lower lobe. Since this was not seen on a chest x-ray from March 19 of this year this is more likely to represent an inflammatory lesion than a neoplasm. PAGE 1 Signed Report (CONTINUED) Name: DOMINGO EULALIA MOORE [facility] : [birth year] Age/S: 77 / F [address] Unit #: [id number] Loc: [place]EL [place] [address] Phys: MARICARMEN ALEXANDRA MD Acct: [id number] Dis Date: Status: PRE ER PHONE #: [phone] Exam Date: 07/08/20182209 FAX #: [phone] R roni: vomiting EXAMS: CPT CODE: [id number] CT ABD PELVIS W/O CONT 90627 <Continued> at 2232 Reported and signed by: Chevy Parks M.D. CC: Hitesh Parker MD; MARICARMEN ALEXANDRA MD Technologist:HAO BRYAN; ... CTDI: DLP: Trnscb Date/Time: 07/08/2018 (2231) [email or web address] Orig Print D/T: S: 07/08/2018 (2234) PAGE 2 Signed Report - CT HEAD/BRAIN W/O CONT 2018-07-08 22:24:00 Name: EULALIA CARLSON [facility] : 1940 Age/S: 77 / F [address] Unit #: [id number] Loc: JEWEL [place] [address] Phys: MARICARMEN ALEXANDRA MD Acct: [id number] Dis Date: Status: PRE ER PHONE #: [phone] Exam Date: 07/08/20182209 FAX #: [phone] Reason: headache EXAMS: CPT CODE: [id number] CT HEAD/BRAIN W/O CONT 38987 EXAM: CT of the head without contrast; INFORMATION: Hypertension, headache; TECHNIQUE AND FINDINGS: CT dose reduction protocol; 2.5 mm axial scans. There is no evidence of intra or extra-axial axial hemorrhage, mass lesions or midline shift. There is an old, small infarct posterior left MCA distribution and there are extensive hypodensities involving the periventricular and deep white matter. Ventricles are symmetric and are mildly dilated; prominent sulci and basilar cisterns. The calvarium is intact. IMPRESSION: 1. No evidence of intracranial hemorrhage or acute territorial infarction. 2. 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 3. No major change compared with a study from March 19, 2018. at 4824 Reported and signed by: Chevy Parks M.D. CC: Hitesh Parker MD; MARICARMEN ALEXANDRA MD Technologist:HAO BRYAN; ... CTDI: DLP: Trnscb Date/Time: 07/08/2018 (2223) t.[email or web address].GRW Orig Print D/T: S: 07/08/2018 (8514) PAGE 1 Signed Report - XR CHEST 1 [id number] 21:32:00 FAX: Hitesh Butler MD [phone] Burns: St: PRE FAX: MARICARMEN ALEXANDRA MD Name: EULALIA CARLSON [facility] : 1940 Age/S: 77/F [address] [facility] Unit #: [id number] Loc: [place] [address] Phys: MARICARMEN ALEXANDRA MD Acct: [id number] Dis Date: Status: PRE ER PHONE #: [phone] Exam Date: 07/08/20182101 FAX #: [phone] Reason: Abdominal Pain EXAMS: CPT CODE: [id number] XR CHEST 1 V 97204 EXAM: Chest x-ray, one view; INFORMATION: Abdominal pain, hypertension; FINDINGS: There is a relatively well c ircumscribed noncalcified lesion projecting above the medial aspect of the right hemidiaphragm. It measures 2.3 cm in diameter. The remainder the lungs is clear; no infiltrate; no edema; no effusions. Aortic c alcification; otherwise, unremarkable cardiomediastinal silhouette. IMPRESSION: 1. No calcified mass lesion projecting over the r ight lower lobe. This was not present on a study from March 19, 2018. I recommend correlation with CT scan of the chest. 2. No other significant abnormalities. at 2131 Reported and signed by: Chevy Parks M.D. CC: Hitesh Parker MD; MARICARMEN ALEXANDRA MD Technologist: MARIELLE RODRIGUEZ Trnscrd Date/Time/By: (2131) : By: EwaGRW Orig Print D/T: S: 07/08/2018 (2134) PAGE 1 Signed Report BASIC METABOLIC [id number] 21:22:00* Test Item Value Reference Range Comments SODIUM (test code=NA) 140 mmol/L 136-145 POTASSIUM (test code=K) 4.3 mmol/L 3.5-5.1 CHLORIDE (test code=CL) 105.0 mmol/L 98-107 CARBON DIOXIDE (test code=CO2) 27.0 mmol/L 21-32 ANION GAP (test code=GAP) 12.3 10-20 GLUCOSE (test code=GLU) 241 mg/dL 74-106 BLOOD UREA NITROGEN (test code=BUN) 20 mg/dL 7-18 GLOMERULAR FILTRATION RATE (test code=GFR) 48 mL/min >=60 Estimated GFR by using Modified MDRD formula.Chronic kidney disease is defined as either kidney damageor GFR <60 mL/min/1.73 m2 for >3 months. CREATININE (test code=CREAT) 1.10 mg/dL 0.55-1.02 Note change in reference range due to change in reagent. BUN/CREATININE RATIO (test code=BUN/CREA) 18.2 10-20 CALCIUM (test code=CA) 9.4 mg/dL 8.5-10.1 HEPATIC FUNCTION [id number] 21:22:00* Test Item Value Reference Range Comments TOTAL PROTEIN (test code=PROT) 7.8 gram/dL 6.4-8.2 ALBUMIN (test code=ALB) 3.7 g/dL 3.4-5.0 GLOBULIN (test code=GLOB) 4.1 gram/dL 2.7-4.2 ALBUMIN/GLOBULIN RATIO (test code=A/G) 0.9 0.75-1.50 BILIRUBIN TOTAL (test code=BILT) 0.40 mg/dL 0.0-1.0 BILIRUBIN DIRECT (test code=BILD) 0.15 mg/dL 0.0-0.20 SGOT/AST (test code=AST) 20 IUnit/L 15-37 SGPT/ALT (test code=ALT) 28 IUnit/L 12-78 ALKALINE PHOSPHATASE TOTAL (test code=ALKP) 65 IUnit/L 45-117 Note change in reference range due to change in reagent. [id number] 21:22:00* Test Item Value Reference Range Comments LIPASE (test code=LIP) 259 U/L 73.0-393.0 HCG SERUM [id number] 21:22:00* Test Item Value Reference Range Comments HCG SERUM QUAL (test code=HCGQL) NEGATIVE NEGATIVE This HCGQL test is NOT applicable for MALE patients.Check with nurse about probable order error.If Tumor Marker Test needed, nurse should order test "HCGTU"(Test #550.10137) [id number] 21:22:00* Test Item Value Reference Range Comments TROPONIN-I (test code=TROPI) <0.015 ng/mL 0-0.045 BASIC METABOLIC [id number] 21:20:00* Test Item Value Reference Range Comments SODIUM (test code=NA) 140 mmol/L 136-145 POTASSIUM (test code=K) 4.3 mmol/L 3.5-5.1 CHLORIDE (test code=CL) 105.0 mmol/L 98-107 CARBON DIOXIDE (test code=CO2) mmol/L 21-32 ANION GAP (test code=GAP) 10-20 GLUCOSE (test code=GLU) mg/dL 74-106 BLOOD UREA NITROGEN (test code=BUN) mg/dL 7-18 GLOMERULAR FILTRATION RATE (test code=GFR) mL/min >=60 CREATININE (test code=CREAT) mg/dL 0.55-1.02 BUN/CREATININE RATIO (test code=BUN/CREA) 10-20 CALCIUM (test code=CA) mg/dL 8.5-10.1 HEPATIC FUNCTION [id number] 21:20:00* Test Item Value Reference Range Comments TOTAL PROTEIN (test code=PROT) gram/dL 6.4-8.2 ALBUMIN (test code=ALB) g/dL 3.4-5.0 GLOBULIN (test code=GLOB) gram/dL 2.7-4.2 ALBUMIN/GLOBULIN RATIO (test code=A/G) 0.75-1.50 BILIRUBIN TOTAL (test code=BILT) mg/dL 0.0-1.0 BILIRUBIN DIRECT (test code=BILD) mg/dL 0.0-0.20 SGOT/AST (test code=AST) IUnit/L 15-37 SGPT/ALT (test code=ALT) IUnit/L 12-78 ALKALINE PHOSPHATASE TOTAL (test code=ALKP) IUnit/L 45-117 [id number] 21:20:00* Test Item Value Reference Range Comments LIPASE (test code=LIP) U/L 73.0-393.0 HCG SERUM [id number] 21:20:00* Test Item Value Reference Range Comments HCG SERUM QUAL (test code=HCGQL) NEGATIVE NEGATIVE This HCGQL test is NOT applicable for MALE patients.Check with nurse about probable order error.If Tumor Marker Test needed, nurse should order test "HCGTU"(Test #550.14323) [id number] 21:20:00* Test Item Value Reference Range Comments TROPONIN-I (test code=TROPI) ng/mL 0-0.045 BASIC METABOLIC [id number] 21:13:00* Test Item Value Reference Range Comments SODIUM (test code=NA) 140 mmol/L 136-145 POTASSIUM (test code=K) 4.3 mmol/L 3.5-5.1 CHLORIDE (test code=CL) 105.0 mmol/L 98-107 CARBON DIOXIDE (test code=CO2) mmol/L 21-32 ANION GAP (test code=GAP) 10-20 GLUCOSE (test code=GLU) mg/dL 74-106 BLOOD UREA NITROGEN (test code=BUN) mg/dL 7-18 GLOMERULAR FILTRATION RATE (test code=GFR) mL/min >=60 CREATININE (test code=CREAT) mg/dL 0.55-1.02 BUN/CREATININE RATIO (test code=BUN/CREA) 10-20 CALCIUM (test code=CA) mg/dL 8.5-10.1 HEPATIC FUNCTION [id number] 21:13:00* Test Item Value Reference Range Comments TOTAL PROTEIN (test code=PROT) gram/dL 6.4-8.2 ALBUMIN (test code=ALB) g/dL 3.4-5.0 GLOBULIN (test code=GLOB) gram/dL 2.7-4.2 ALBUMIN/GLOBULIN RATIO (test code=A/G) 0.75-1.50 BILIRUBIN TOTAL (test code=BILT) mg/dL 0.0-1.0 BILIRUBIN DIRECT (test code=BILD) mg/dL 0.0-0.20 SGOT/AST (test code=AST) IUnit/L 15-37 SGPT/ALT (test code=ALT) IUnit/L 12-78 ALKALINE PHOSPHATASE TOTAL (test code=ALKP) IUnit/L 45-117 [id number] 21:13:00* Test Item Value Reference Range Comments LIPASE (test code=LIP) U/L 73.0-393.0 HCG SERUM [id number] 21:13:00* Test Item Value Reference Range Comments HCG SERUM QUAL (test code=HCGQL) NEGATIVE [id number] 21:13:00* Test Item Value Reference Range Comments TROPONIN-I (test code=TROPI) ng/mL 0-0.045 PROTHROMBIN [id number] 21:07:00* Test Item Value Reference Range Comments PROTHROMBIN TIME PATIENT (test code=PTP) 12.7 seconds 9.0-14.0 INTERNATIONAL NORMAL RATIO (test code=INR) 1.1 0.8-1.2 The therapeutic range for oral anticoagulant therapy formost indications is an international normalized ratio (INR)of between 2.0 and 3.0. The recommended therapeutic INRrange for various clinical situations is listed below: Clinical Situation INR range Pulmonary e mbolism treatment (2.0-3.0)Venous thrombosis treatmentVenous thrombosis prophylaxis (high risk surgery)Prevention of systemic embolism from: Acute myocardial infarction Valvular heart disease Atrial fibrillation Mechanical prosthetic heart valves (2.5-3.5) IS PATIENT ON ANTICOAGULANTS? NTHROMBOPLASTIN TIME [id number] 21:07:00* Test Item Value Reference Range Comments THROMBOPLASTIN TIME PARTIAL (test code=PTT) 32.8 seconds 25.0-36.5 IS PATIENT ON ANTICOAGULANTS? NCBC W/O [id number] 21:00:00* Test Item Value Reference Range Comments WHITE BLOOD CELL (test code=WBC) 11.6 K/mm3 4.5-12.5 RED BLOOD CELL (test code=RBC) 4.46 mill/mm3 3.7-5.2 HEMOGLOBIN (test code=HGB) 11.7 gram/dL 11.5-15.5 HEMATOCRIT (test code=HCT) 37.6 % 36.0-46.0 MEAN CELL VOLUME (test code=MCV) 84.3 fL 80-98 MEAN CELL HGB (test code=MCH) 26.2 picogram 27.0-33.0 MEAN CELL HGB CONCETRATION (test code=MCHC) 31.1 gram/dL 33.0-36.0 RED CELL DISTRIBUTION WIDTH (test code=RDW) 14.4 % 11.6-16.2 PLATELET COUNT (test code=PLT) 297 K/mm3 150-450 MEAN PLATELET VOLUME (test code=MPV) 10.2 fL 6.7-11.0 [id number] 13:23:00* Test Item Value Reference Range Comments GLUBED (test code=GLUBED) 175 mg/dL 74-106 Performed by certified strap cutting machine operator at [facility] [id number] 11:33:00* Test Item Value Reference Range Comments GLUBED (test code=GLUBED) 226 mg/dL 74-106 Performed by certified strap cutting machine operator at [facility] CBC W/AUTO [id number] 07:24:00* Test Item Value Reference Range Comments WHITE BLOOD CELL (test code=WBC) 12.9 K/mm3 4.5-12.5 RED BLOOD CELL (test code=RBC) 4.67 mill/mm3 3.7-5.2 HEMOGLOBIN (test code=HGB) 10.5 gram/dL 11.5-15.5 HEMATOCRIT (test code=HCT) 36.2 % 36.0-46.0 MEAN CELL VOLUME (test code=MCV) 77.5 fL 80-98 MEAN CELL HGB (test code=MCH) 22.5 picogram 27.0-33.0 MEAN CELL HGB CONCETRATION (test code=MCHC) 29.0 gram/dL 33.0-36.0 RED CELL DISTRIBUTION WIDTH (test code=RDW) 19.5 % 11.6-16.2 RED CELL DISTRIBUTION WIDTH SD (test code=RDW-SD) 53.9 fL 37.0-51.0 PLATELET COUNT (test code=PLT) 286 K/mm3 150-450 MEAN PLATELET VOLUME (test code=MPV) 10.8 fL 6.7-11.0 NEUTROPHIL % (test code=NT%) 79.5 % 39.0-69.0 IMMATURE GRANULOCYTE % (test code=IG%) 0.4 % 0.0-5.0 LYMPHOCYTE % (test code=LY%) 8.2 % 25.0-55.0 MONOCYTE % (test code=MO%) 11.5 % 0.0-10.0 EOSINOPHIL % (test code=EO%) 0.2 % 0.0-5.0 BASOPHIL % (test code=BA%) 0.2 % 0.0-1.0 NUCLEATED RBC % (test code=NRBC%) 0.0 % 0-0 NEUTROPHIL # (test code=NT#) 10.23 K/mm3 1.8-7.7 IMMATURE GRANULOCYTE # (test code=IG#) 0.05 x10 3/uL 0-0.03 LYMPHOCYTE # (test code=LY#) 1.05 K/mm3 1.0-5.0 MONOCYTE # (test code=MO#) 1.48 K/mm3 0-0.8 EOSINOPHIL # (test code=EO#) 0.02 K/mm3 0.0-0.5 BASOPHIL # (test code=BA#) 0.02 K/mm3 0.0-0.2 NUCLEATED RBC # (test code=NRBC#) 0.00 K/mm3 0.0-0.1 MANUAL DIFF REQUIRED (test code=MDIFF) NO, ONLY SCAN NEEDED DIFFERENTIAL [id number] 07:24:00* Test Item Value Reference Range Comments STAIN ACCEPTABILITY (test code=STN ACCEPTABLE) STAIN ACCEPTABLE POIKILOCYTOSIS (test code=POIK) 1+ ANISOCYTOSIS (test code=ANISO) 1+ ELLIPTOCYTES (test code=ELL) 1+ PLATELET ESTIMATE (test code=PLTEST) ADEQUATE PLATELET MORPHOLOGY (test code=PLTMORPH) APPEAR LARGE [id number] 06:30:00* Test Item Value Reference Range Comments GLYCOSYLATED HEMOGLOBIN (HA1C) (test code=GLYHGB) 8.3 % HbA1 4.8-6.0 ESTIMATED AVERAGE GLUCOSE (test code=EAG) 192 MG/DL BASIC METABOLIC [id number] 06:21:00* Test Item Value Reference Range Comments SODIUM (test code=NA) 141 mmol/L 136-145 POTASSIUM (test code=K) 3.7 mmol/L 3.5-5.1 CHLORIDE (test code=CL) 106.0 mmol/L 98-107 CARBON DIOXIDE (test code=CO2) 26.0 mmol/L 21-32 ANION GAP (test code=GAP) 12.7 10-20 GLUCOSE (test code=GLU) 97 mg/dL 74-106 BLOOD UREA NITROGEN (test code=BUN) 30 mg/dL 7-18 GLOMERULAR FILTRATION RATE (test code=GFR) 60 mL/min >=60 Estimated GFR by using Modified MDRD formula.Chronic kidney disease is defined as either kidney damageor GFR <60 mL/min/1.73 m2 for >3 months. CREATININE (test code=CREAT) 0.90 mg/dL 0.55-1.02 Note change in reference range due to change in reagent. BUN/CREATININE RATIO (test code=BUN/CREA) 32.2 10-20 CALCIUM (test code=CA) 9.4 mg/dL 8.5-10.1 THYROID PROFILE [id number] 06:21:00* Test Item Value Reference Range Comments T3 UPTAKE (test code=T3UP) 38.0 % 30.0-40.0 T4 (THYROXINE) (test code=T4) 11.1 ug/dL 4.5-13.9 T7 (FREE THYROXINE INDEX) (test code=T7) 4.21 FTI 1.3-5.1 THYROID STIMULATING HORMONE (test code=TSH) 0.262 uIU/mL 0.36-3.74 TSH REFERENCE RANGES: EUTHYROID: 0.35 - 4.3 mIU/mL HYPO : > 5.5 mIU/mL HYPER : < 0.35 mIU/mL [id number] 06:14:00* Test Item Value Reference Range Comments GLUBED (test code=GLUBED) 138 mg/dL 74-106 Performed by certified strap cutting machine operator at [facility] [id number] 06:14:00* Test Item Value Reference Range Comments GLUBED (test code=GLUBED) 255 mg/dL 74-106 Performed by certified strap cutting machine operator at [facility] CBC W/AUTO [id number] 06:05:00* Test Item Value Reference Range Comments WHITE BLOOD CELL (test code=WBC) 12.9 K/mm3 4.5-12.5 RED BLOOD CELL (test code=RBC) 4.67 mill/mm3 3.7-5.2 HEMOGLOBIN (test code=HGB) 10.5 gram/dL 11.5-15.5 HEMATOCRIT (test code=HCT) 36.2 % 36.0-46.0 MEAN CELL VOLUME (test code=MCV) 77.5 fL 80-98 MEAN CELL HGB (test code=MCH) 22.5 picogram 27.0-33.0 MEAN CELL HGB CONCETRATION (test code=MCHC) 29.0 gram/dL 33.0-36.0 RED CELL DISTRIBUTION WIDTH (test code=RDW) 19.5 % 11.6-16.2 RED CELL DISTRIBUTION WIDTH SD (test code=RDW-SD) 53.9 fL 37.0-51.0 PLATELET COUNT (test code=PLT) 286 K/mm3 150-450 MEAN PLATELET VOLUME (test code=MPV) 10.8 fL 6.7-11.0 NEUTROPHIL % (test code=NT%) 79.5 % 39.0-69.0 IMMATURE GRANULOCYTE % (test code=IG%) 0.4 % 0.0-5.0 LYMPHOCYTE % (test code=LY%) 8.2 % 25.0-55.0 MONOCYTE % (test code=MO%) 11.5 % 0.0-10.0 EOSINOPHIL % (test code=EO%) 0.2 % 0.0-5.0 BASOPHIL % (test code=BA%) 0.2 % 0.0-1.0 NUCLEATED RBC % (test code=NRBC%) 0.0 % 0-0 NEUTROPHIL # (test code=NT#) 10.23 K/mm3 1.8-7.7 IMMATURE GRANULOCYTE # (test code=IG#) 0.05 x10 3/uL 0-0.03 LYMPHOCYTE # (test code=LY#) 1.05 K/mm3 1.0-5.0 MONOCYTE # (test code=MO#) 1.48 K/mm3 0-0.8 EOSINOPHIL # (test code=EO#) 0.02 K/mm3 0.0-0.5 BASOPHIL # (test code=BA#) 0.02 K/mm3 0.0-0.2 NUCLEATED RBC # (test code=NRBC#) 0.00 K/mm3 0.0-0.1 MANUAL DIFF REQUIRED (test code=MDIFF) NO, ONLY SCAN NEEDED DIFFERENTIAL [id number] 06:05:00* Test Item Value Reference Range Comments STAIN ACCEPTABILITY (test code=STN ACCEPTABLE) CABOT RINGS (test code=CAB) MORPHOLOGY COMMENT (test code=MOC) PLATELET ESTIMATE (test code=PLTEST) PLATELET MORPHOLOGY (test code=PLTMORPH) CBC W/AUTO [id number] 06:05:00* Test Item Value Reference Range Comments WHITE BLOOD CELL (test code=WBC) 12.9 K/mm3 4.5-12.5 RED BLOOD CELL (test code=RBC) 4.67 mill/mm3 3.7-5.2 HEMOGLOBIN (test code=HGB) 10.5 gram/dL 11.5-15.5 HEMATOCRIT (test code=HCT) 36.2 % 36.0-46.0 MEAN CELL VOLUME (test code=MCV) 77.5 fL 80-98 MEAN CELL HGB (test code=MCH) 22.5 picogram 27.0-33.0 MEAN CELL HGB CONCETRATION (test code=MCHC) 29.0 gram/dL 33.0-36.0 RED CELL DISTRIBUTION WIDTH (test code=RDW) 19.5 % 11.6-16.2 RED CELL DISTRIBUTION WIDTH SD (test code=RDW-SD) 53.9 fL 37.0-51.0 PLATELET COUNT (test code=PLT) 286 K/mm3 150-450 MEAN PLATELET VOLUME (test code=MPV) 10.8 fL 6.7-11.0 NEUTROPHIL % (test code=NT%) 79.5 % 39.0-69.0 IMMATURE GRANULOCYTE % (test code=IG%) 0.4 % 0.0-5.0 LYMPHOCYTE % (test code=LY%) 8.2 % 25.0-55.0 MONOCYTE % (test code=MO%) 11.5 % 0.0-10.0 EOSINOPHIL % (test code=EO%) 0.2 % 0.0-5.0 BASOPHIL % (test code=BA%) 0.2 % 0.0-1.0 NUCLEATED RBC % (test code=NRBC%) 0.0 % 0-0 NEUTROPHIL # (test code=NT#) 10.23 K/mm3 1.8-7.7 IMMATURE GRANULOCYTE # (test code=IG#) 0.05 x10 3/uL 0-0.03 LYMPHOCYTE # (test code=LY#) 1.05 K/mm3 1.0-5.0 MONOCYTE # (test code=MO#) 1.48 K/mm3 0-0.8 EOSINOPHIL # (test code=EO#) 0.02 K/mm3 0.0-0.5 BASOPHIL # (test code=BA#) 0.02 K/mm3 0.0-0.2 NUCLEATED RBC # (test code=NRBC#) 0.00 K/mm3 0.0-0.1 MANUAL DIFF REQUIRED (test code=MDIFF) NO, ONLY SCAN NEEDED DIFFERENTIAL [id number] 06:05:00* Test Item Value Reference Range Comments STAIN ACCEPTABILITY (test code=STN ACCEPTABLE) CABOT RINGS (test code=CAB) MORPHOLOGY COMMENT (test code=MOC) PLATELET ESTIMATE (test code=PLTEST) PLATELET MORPHOLOGY (test code=PLTMORPH) CBC W/AUTO [id number] 06:05:00* Test Item Value Reference Range Comments WHITE BLOOD CELL (test code=WBC) 12.9 K/mm3 4.5-12.5 RED BLOOD CELL (test code=RBC) 4.67 mill/mm3 3.7-5.2 HEMOGLOBIN (test code=HGB) 10.5 gram/dL 11.5-15.5 HEMATOCRIT (test code=HCT) 36.2 % 36.0-46.0 MEAN CELL VOLUME (test code=MCV) 77.5 fL 80-98 MEAN CELL HGB (test code=MCH) 22.5 picogram 27.0-33.0 MEAN CELL HGB CONCETRATION (test code=MCHC) 29.0 gram/dL 33.0-36.0 RED CELL DISTRIBUTION WIDTH (test code=RDW) 19.5 % 11.6-16.2 RED CELL DISTRIBUTION WIDTH SD (test code=RDW-SD) 53.9 fL 37.0-51.0 PLATELET COUNT (test code=PLT) 286 K/mm3 150-450 MEAN PLATELET VOLUME (test code=MPV) 10.8 fL 6.7-11.0 NEUTROPHIL % (test code=NT%) 79.5 % 39.0-69.0 IMMATURE GRANULOCYTE % (test code=IG%) 0.4 % 0.0-5.0 LYMPHOCYTE % (test code=LY%) 8.2 % 25.0-55.0 MONOCYTE % (test code=MO%) 11.5 % 0.0-10.0 EOSINOPHIL % (test code=EO%) 0.2 % 0.0-5.0 BASOPHIL % (test code=BA%) 0.2 % 0.0-1.0 NUCLEATED RBC % (test code=NRBC%) 0.0 % 0-0 NEUTROPHIL # (test code=NT#) 10.23 K/mm3 1.8-7.7 IMMATURE GRANULOCYTE # (test code=IG#) 0.05 x10 3/uL 0-0.03 LYMPHOCYTE # (test code=LY#) 1.05 K/mm3 1.0-5.0 MONOCYTE # (test code=MO#) 1.48 K/mm3 0-0.8 EOSINOPHIL # (test code=EO#) 0.02 K/mm3 0.0-0.5 BASOPHIL # (test code=BA#) 0.02 K/mm3 0.0-0.2 NUCLEATED RBC # (test code=NRBC#) 0.00 K/mm3 0.0-0.1 MANUAL DIFF REQUIRED (test code=MDIFF) NO, ONLY SCAN NEEDED DIFFERENTIAL [id number] 06:05:00* Test Item Value Reference Range Comments STAIN ACCEPTABILITY (test code=STN ACCEPTABLE) MORPHOLOGY COMMENT (test code=MOC) PLATELET ESTIMATE (test code=PLTEST) PLATELET MORPHOLOGY (test code=PLTMORPH) CBC W/AUTO [id number] 06:05:00* Test Item Value Reference Range Comments WHITE BLOOD CELL (test code=WBC) 12.9 K/mm3 4.5-12.5 RED BLOOD CELL (test code=RBC) 4.67 mill/mm3 3.7-5.2 HEMOGLOBIN (test code=HGB) 10.5 gram/dL 11.5-15.5 HEMATOCRIT (test code=HCT) 36.2 % 36.0-46.0 MEAN CELL VOLUME (test code=MCV) 77.5 fL 80-98 MEAN CELL HGB (test code=MCH) 22.5 picogram 27.0-33.0 MEAN CELL HGB CONCETRATION (test code=MCHC) 29.0 gram/dL 33.0-36.0 RED CELL DISTRIBUTION WIDTH (test code=RDW) 19.5 % 11.6-16.2 RED CELL DISTRIBUTION WIDTH SD (test code=RDW-SD) 53.9 fL 37.0-51.0 PLATELET COUNT (test code=PLT) 286 K/mm3 150-450 MEAN PLATELET VOLUME (test code=MPV) 10.8 fL 6.7-11.0 NEUTROPHIL % (test code=NT%) 79.5 % 39.0-69.0 IMMATURE GRANULOCYTE % (test code=IG%) 0.4 % 0.0-5.0 LYMPHOCYTE % (test code=LY%) 8.2 % 25.0-55.0 MONOCYTE % (test code=MO%) 11.5 % 0.0-10.0 EOSINOPHIL % (test code=EO%) 0.2 % 0.0-5.0 BASOPHIL % (test code=BA%) 0.2 % 0.0-1.0 NUCLEATED RBC % (test code=NRBC%) 0.0 % 0-0 NEUTROPHIL # (test code=NT#) 10.23 K/mm3 1.8-7.7 IMMATURE GRANULOCYTE # (test code=IG#) 0.05 x10 3/uL 0-0.03 LYMPHOCYTE # (test code=LY#) 1.05 K/mm3 1.0-5.0 MONOCYTE # (test code=MO#) 1.48 K/mm3 0-0.8 EOSINOPHIL # (test code=EO#) 0.02 K/mm3 0.0-0.5 BASOPHIL # (test code=BA#) 0.02 K/mm3 0.0-0.2 NUCLEATED RBC # (test code=NRBC#) 0.00 K/mm3 0.0-0.1 MANUAL DIFF REQUIRED (test code=MDIFF) NO, ONLY SCAN NEEDED DIFFERENTIAL [id number] 06:05:00* Test Item Value Reference Range Comments STAIN ACCEPTABILITY (test code=STN ACCEPTABLE) CABOT RINGS (test code=CAB) MORPHOLOGY COMMENT (test code=MOC) PLATELET ESTIMATE (test code=PLTEST) PLATELET MORPHOLOGY (test code=PLTMORPH) BASIC METABOLIC [id number] 06:02:00* Test Item Value Reference Range Comments SODIUM (test code=NA) 141 mmol/L 136-145 POTASSIUM (test code=K) 3.7 mmol/L 3.5-5.1 CHLORIDE (test code=CL) 106.0 mmol/L 98-107 CARBON DIOXIDE (test code=CO2) mmol/L 21-32 ANION GAP (test code=GAP) 10-20 GLUCOSE (test code=GLU) mg/dL 74-106 BLOOD UREA NITROGEN (test code=BUN) mg/dL 7-18 GLOMERULAR FILTRATION RATE (test code=GFR) mL/min >=60 CREATININE (test code=CREAT) mg/dL 0.55-1.02 BUN/CREATININE RATIO (test code=BUN/CREA) 10-20 CALCIUM (test code=CA) mg/dL 8.5-10.1 THYROID PROFILE [id number] 06:02:00* Test Item Value Reference Range Comments T3 UPTAKE (test code=T3UP) % 30.0-40.0 T4 (THYROXINE) (test code=T4) ug/dL 4.5-13.9 T7 (FREE THYROXINE INDEX) (test code=T7) FTI 1.3-5.1 THYROID STIMULATING HORMONE (test code=TSH) uIU/mL 0.36-3.74 CBC W/AUTO [id number] 05:54:00* Test Item Value Reference Range Comments WHITE BLOOD CELL (test code=WBC) K/mm3 4.5-12.5 RED BLOOD CELL (test code=RBC) mill/mm3 3.7-5.2 HEMOGLOBIN (test code=HGB) gram/dL 11.5-15.5 HEMATOCRIT (test code=HCT) 36.2 % 36.0-46.0 MEAN CELL VOLUME (test code=MCV) fL 80-98 MEAN CELL HGB (test code=MCH) picogram 27.0-33.0 MEAN CELL HGB CONCETRATION (test code=MCHC) gram/dL 33.0-36.0 RED CELL DISTRIBUTION WIDTH (test code=RDW) % 11.6-16.2 RED CELL DISTRIBUTION WIDTH SD (test code=RDW-SD) fL 37.0-51.0 PLATELET COUNT (test code=PLT) K/mm3 150-450 MEAN PLATELET VOLUME (test code=MPV) fL 6.7-11.0 NEUTROPHIL % (test code=NT%) % 39.0-69.0 IMMATURE GRANULOCYTE % (test code=IG%) % 0.0-5.0 LYMPHOCYTE % (test code=LY%) % 25.0-55.0 MONOCYTE % (test code=MO%) % 0.0-10.0 EOSINOPHIL % (test code=EO%) % 0.0-5.0 BASOPHIL % (test code=BA%) % 0.0-1.0 NEUTROPHIL # (test code=NT#) K/mm3 1.8-7.7 LYMPHOCYTE # (test code=LY#) K/mm3 1.0-5.0 MONOCYTE # (test code=MO#) K/mm3 0-0.8 EOSINOPHIL # (test code=EO#) K/mm3 0.0-0.5 BASOPHIL # (test code=BA#) K/mm3 0.0-0.2 [id number] 19:13:00* Test Item Value Reference Range Comments TROPONIN-I (test code=TROPI) <0.015 ng/mL 0-0.045 COMMENTS TO VACATION PLANNER: COLLECT 3 HOURS AFTER PREVIOUS [id number] 16:15:00* Test Item Value Reference Range Comments TROPONIN-I (test code=TROPI) <0.015 ng/mL 0-0.045 COMMENTS TO VACATION PLANNER: COLLECT 3 HOURS AFTER PREVIOUS SAMPLEB-TYPE NATRIURETIC [id number] 13:38:00* Test Item Value Reference Range Comments B-TYPE NATRIURETIC PEPTIDE (test code=BNP) 256.01 pgram/mL 0-100 COMPREHENSIVE METABOLIC [id number] 12:55:00* Test Item Value Reference Range Comments SODIUM (test code=NA) 142 mmol/L 136-145 POTASSIUM (test code=K) 3.4 mmol/L 3.5-5.1 CHLORIDE (test code=CL) 103.0 mmol/L 98-107 CARBON DIOXIDE (test code=CO2) 29.0 mmol/L 21-32 ANION GAP (test code=GAP) 13.4 10-20 GLUCOSE (test code=GLU) 251 mg/dL 74-106 BLOOD UREA NITROGEN (test code=BUN) 26 mg/dL 7-18 GLOMERULAR FILTRATION RATE (test code=GFR) 53 mL/min >=60 Estimated GFR by using Modified MDRD formula.Chronic kidney disease is defined as either kidney damageor GFR <60 mL/min/1.73 m2 for >3 months. CREATININE (test code=CREAT) 1.00 mg/dL 0.55-1.02 Note change in reference range due to change in reagent. BUN/CREATININE RATIO (test code=BUN/CREA) 26.5 10-20 TOTAL PROTEIN (test code=PROT) 8.9 gram/dL 6.4-8.2 ALBUMIN (test code=ALB) 4.0 g/dL 3.4-5.0 GLOBULIN (test code=GLOB) 4.9 gram/dL 2.7-4.2 ALBUMIN/GLOBULIN RATIO (test code=A/G) 0.8 0.75-1.50 CALCIUM (test code=CA) 9.5 mg/dL 8.5-10.1 BILIRUBIN TOTAL (test code=BILT) 0.60 mg/dL 0.0-1.0 SGOT/AST (test code=AST) 13 IUnit/L 15-37 SGPT/ALT (test code=ALT) 22 IUnit/L 12-78 ALKALINE PHOSPHATASE TOTAL (test code=ALKP) 74 IUnit/L 45-117 Note change in reference range due to change in reagent. [id number] 12:55:00* Test Item Value Reference Range Comments LIPASE (test code=LIP) 120 U/L 73.0-393.0 [id number] 12:55:00* Test Item Value Reference Range Comments CKMB (test code=CKMBT) < 1.0 ng/mL 0-6.0 [id number] 12:55:00* Test Item Value Reference Range Comments TROPONIN-I (test code=TROPI) <0.015 ng/mL 0-0.045 COMPREHENSIVE METABOLIC [id number] 12:47:00* Test Item Value Reference Range Comments SODIUM (test code=NA) 142 mmol/L 136-145 POTASSIUM (test code=K) 3.4 mmol/L 3.5-5.1 CHLORIDE (test code=CL) 103.0 mmol/L 98-107 CARBON DIOXIDE (test code=CO2) mmol/L 21-32 ANION GAP (test code=GAP) 10-20 GLUCOSE (test code=GLU) mg/dL 74-106 BLOOD UREA NITROGEN (test code=BUN) mg/dL 7-18 GLOMERULAR FILTRATION RATE (test code=GFR) mL/min >=60 CREATININE (test code=CREAT) mg/dL 0.55-1.02 BUN/CREATININE RATIO (test code=BUN/CREA) 10-20 TOTAL PROTEIN (test code=PROT) gram/dL 6.4-8.2 ALBUMIN (test code=ALB) g/dL 3.4-5.0 GLOBULIN (test code=GLOB) gram/dL 2.7-4.2 ALBUMIN/GLOBULIN RATIO (test code=A/G) 0.75-1.50 CALCIUM (test code=CA) mg/dL 8.5-10.1 BILIRUBIN TOTAL (test code=BILT) mg/dL 0.0-1.0 SGOT/AST (test code=AST) IUnit/L 15-37 SGPT/ALT (test code=ALT) IUnit/L 12-78 ALKALINE PHOSPHATASE TOTAL (test code=ALKP) IUnit/L 45-117 [id number] 12:47:00* Test Item Value Reference Range Comments LIPASE (test code=LIP) U/L 73.0-393.0 [id number] 12:47:00* Test Item Value Reference Range Comments CKMB (test code=CKMBT) ng/mL 0-6.0 [id number] 12:47:00* Test Item Value Reference Range Comments TROPONIN-I (test code=TROPI) ng/mL 0-0.045 - XR CHEST 2 [id number] 12:46:00 FAX: Hitesh Butler MD [phone] [place]: St: REG FAX: Felicity Mcdaniel [phone] Name: EULALIA [facility] : 1940 Age/S: 77/F [address] [facility] Unit #: [id number] Loc: [place] [address] Phys: Felicity Storey MD Acct: [id number] Dis Date: Status: REG ER PHONE #: [phone] Exam Date: 03/19/2018 1230 FAX #: [phone] Reason: dizziness, vomiting EXAMS: CPT CODE: [id number] XR CHEST 2 V 01577 HISTORY: Dizziness and vomiting. COMPARISON: June 23, 2016. AP and lateral view of the chest: No acute infiltrates, effusion or congestion COPD. Scarring. Cardiac silhouette is mildly enlarged. 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 IMPRESSION: COPD and scarring. No acute infiltrates, effusion or congestion. at 1246 Reported and signed by: Carl Reyes M.D. CC: Hitesh Parker MD; Felicity Storey MD Technologist: AIMEE COLEMAN JR Trnscrd Date/Time/By: 03/19/2018 (2688) : By: [email or web address] Orig Print D/T: S: 03/19/2018 (7727) PAGE 1 Signed Report CBC W/AUTO [id number] 12:45:00* Test Item Value Reference Range Comments WHITE BLOOD CELL (test code=WBC) 14.2 K/mm3 4.5-12.5 RED BLOOD CELL (test code=RBC) 5.23 mill/mm3 3.7-5.2 HEMOGLOBIN (test code=HGB) 11.5 gram/dL 11.5-15.5 HEMATOCRIT (test code=HCT) 40.6 % 36.0-46.0 MEAN CELL VOLUME (test code=MCV) 77.6 fL 80-98 MEAN CELL HGB (test code=MCH) 22.0 picogram 27.0-33.0 MEAN CELL HGB CONCETRATION (test code=MCHC) 28.3 gram/dL 33.0-36.0 RED CELL DISTRIBUTION WIDTH (test code=RDW) 19.5 % 11.6-16.2 RED CELL DISTRIBUTION WIDTH SD (test code=RDW-SD) 53.3 fL 37.0-51.0 PLATELET COUNT (test code=PLT) 324 K/mm3 150-450 MEAN PLATELET VOLUME (test code=MPV) 10.0 fL 6.7-11.0 NEUTROPHIL % (test code=NT%) 93.6 % 39.0-69.0 IMMATURE GRANULOCYTE % (test code=IG%) 0.8 % 0.0-5.0 LYMPHOCYTE % (test code=LY%) 3.2 % 25.0-55.0 MONOCYTE % (test code=MO%) 2.3 % 0.0-10.0 EOSINOPHIL % (test code=EO%) 0.0 % 0.0-5.0 BASOPHIL % (test code=BA%) 0.1 % 0.0-1.0 NUCLEATED RBC % (test code=NRBC%) 0.0 % 0-0 NEUTROPHIL # (test code=NT#) 13.25 K/mm3 1.8-7.7 IMMATURE GRANULOCYTE # (test code=IG#) 0.11 x10 3/uL 0-0.03 LYMPHOCYTE # (test code=LY#) 0.46 K/mm3 1.0-5.0 MONOCYTE # (test code=MO#) 0.33 K/mm3 0-0.8 EOSINOPHIL # (test code=EO#) 0.00 K/mm3 0.0-0.5 BASOPHIL # (test code=BA#) 0.01 K/mm3 0.0-0.2 NUCLEATED RBC # (test code=NRBC#) 0.00 K/mm3 0.0-0.1 MANUAL DIFF REQUIRED (test code=MDIFF) NO, ONLY SCAN NEEDED DIFFERENTIAL [id number] 12:45:00* Test Item Value Reference Range Comments STAIN ACCEPTABILITY (test code=STN ACCEPTABLE) STAIN ACCEPTABLE MORPHOLOGY COMMENT (test code=MOC) NORMAL PLATELET ESTIMATE (test code=PLTEST) ADEQUATE PLATELET MORPHOLOGY (test code=PLTMORPH) NORMAL URINALYSIS [id number] 12:44:00* Test Item Value Reference Range Comments UA COLOR (test code=COLU) YELLOW YELLOW UA APPEARANCE (test code=APPU) SLIGHTLY CLOUDY CLEAR UA GLUCOSE DIPSTICK (test code=DGLUU) >=500 mg/dL NEGATIVE UA BILIRUBIN DIPSTICK (test code=BILU) NEGATIVE mg/dL NEGATIVE UA KETONE DIPSTICK (test code=KETU) 20 (Small) mg/dL NEGATIVE UA SPECIFIC GRAVITY (test code=SGU) 1.015 1.001-1.035 UA BLOOD DIPSTICK (test code=CLAUDIA) Negative NEGATIVE UA PH DIPSTICK (test code=NATALIE) 6.0 5.0-8.0 UA PROTEIN DIPSTICK (test code=PROU) 100 (2+) mg/dL NEGATIVE UA UROBILINIOGEN DIPSTICK (test code=URO) NEGATIVE mg/dL NEGATIVE UA NITRITE DIPSTICK (test code=ADE) NEGATIVE NEGATIVE UA LEUKOCYTE ESTERASE W REFLEX (test code=LEUUR) 1+ NEGATIVE UA WBC (test code=WBCU) 5-10 per HPF 0-5 IN SOME URINARY TRACT INFECTIONS THERE MAY NOT BE ENOUGHWBCs IN THE URINE TO TRIGGER AN AUTOMATIC (REFLEX) URINECULTURE. A SEPERATE ORDER FOR URINE CULTURE IS RECOMMENDEDIF THERE IS STRONG SUPPORT FOR A URINARY TRACT INFECTIONCLINICALLY. UA RBC (test code=RBCU) 0-2 per HPF 0-5 UA EPITHELIAL CELLS (test code=EPIU) FEW per HPF Few UA BACTERIA (test code=BACU) FEW per HPF NONE Urine Source? Clean CatchURINALYSIS [id number] 12:30:00* Test Item Value Reference Range Comments UA COLOR (test code=COLU) YELLOW YELLOW UA APPEARANCE (test code=APPU) SLIGHTLY CLOUDY CLEAR UA GLUCOSE DIPSTICK (test code=DGLUU) >=500 mg/dL NEGATIVE UA BILIRUBIN DIPSTICK (test code=BILU) NEGATIVE mg/dL NEGATIVE UA KETONE DIPSTICK (test code=KETU) 20 (Small) mg/dL NEGATIVE UA SPECIFIC GRAVITY (test code=SGU) 1.015 1.001-1.035 UA BLOOD DIPSTICK (test code=CLAUDIA) Negative NEGATIVE UA PH DIPSTICK (test code=NATALIE) 6.0 5.0-8.0 UA PROTEIN DIPSTICK (test code=PROU) 100 (2+) mg/dL NEGATIVE UA UROBILINIOGEN DIPSTICK (test code=URO) NEGATIVE mg/dL NEGATIVE UA NITRITE DIPSTICK (test code=ADE) NEGATIVE NEGATIVE UA LEUKOCYTE ESTERASE W REFLEX (test code=LEUUR) 1+ NEGATIVE UA WBC (test code=WBCU) per HPF 0-5 Urine Source? Clean CatchCBC W/AUTO [id number] 12:16:00* Test Item Value Reference Range Comments WHITE BLOOD CELL (test code=WBC) 14.2 K/mm3 4.5-12.5 RED BLOOD CELL (test code=RBC) 5.23 mill/mm3 3.7-5.2 HEMOGLOBIN (test code=HGB) 11.5 gram/dL 11.5-15.5 HEMATOCRIT (test code=HCT) 40.6 % 36.0-46.0 MEAN CELL VOLUME (test code=MCV) 77.6 fL 80-98 MEAN CELL HGB (test code=MCH) 22.0 picogram 27.0-33.0 MEAN CELL HGB CONCETRATION (test code=MCHC) 28.3 gram/dL 33.0-36.0 RED CELL DISTRIBUTION WIDTH (test code=RDW) 19.5 % 11.6-16.2 RED CELL DISTRIBUTION WIDTH SD (test code=RDW-SD) 53.3 fL 37.0-51.0 PLATELET COUNT (test code=PLT) 324 K/mm3 150-450 MEAN PLATELET VOLUME (test code=MPV) 10.0 fL 6.7-11.0 NEUTROPHIL % (test code=NT%) 93.6 % 39.0-69.0 IMMATURE GRANULOCYTE % (test code=IG%) 0.8 % 0.0-5.0 LYMPHOCYTE % (test code=LY%) 3.2 % 25.0-55.0 MONOCYTE % (test code=MO%) 2.3 % 0.0-10.0 EOSINOPHIL % (test code=EO%) 0.0 % 0.0-5.0 BASOPHIL % (test code=BA%) 0.1 % 0.0-1.0 NUCLEATED RBC % (test code=NRBC%) 0.0 % 0-0 NEUTROPHIL # (test code=NT#) 13.25 K/mm3 1.8-7.7 IMMATURE GRANULOCYTE # (test code=IG#) 0.11 x10 3/uL 0-0.03 LYMPHOCYTE # (test code=LY#) 0.46 K/mm3 1.0-5.0 MONOCYTE # (test code=MO#) 0.33 K/mm3 0-0.8 EOSINOPHIL # (test code=EO#) 0.00 K/mm3 0.0-0.5 BASOPHIL # (test code=BA#) 0.01 K/mm3 0.0-0.2 NUCLEATED RBC # (test code=NRBC#) 0.00 K/mm3 0.0-0.1 MANUAL DIFF REQUIRED (test code=MDIFF) NO, ONLY SCAN NEEDED DIFFERENTIAL [id number] 12:16:00* Test Item Value Reference Range Comments STAIN ACCEPTABILITY (test code=STN ACCEPTABLE) CABOT RINGS (test code=CAB) MORPHOLOGY COMMENT (test code=MOC) PLATELET ESTIMATE (test code=PLTEST) PLATELET MORPHOLOGY (test code=PLTMORPH) CBC W/AUTO [id number] 12:16:00* Test Item Value Reference Range Comments WHITE BLOOD CELL (test code=WBC) 14.2 K/mm3 4.5-12.5 RED BLOOD CELL (test code=RBC) 5.23 mill/mm3 3.7-5.2 HEMOGLOBIN (test code=HGB) 11.5 gram/dL 11.5-15.5 HEMATOCRIT (test code=HCT) 40.6 % 36.0-46.0 MEAN CELL VOLUME (test code=MCV) 77.6 fL 80-98 MEAN CELL HGB (test code=MCH) 22.0 picogram 27.0-33.0 MEAN CELL HGB CONCETRATION (test code=MCHC) 28.3 gram/dL 33.0-36.0 RED CELL DISTRIBUTION WIDTH (test code=RDW) 19.5 % 11.6-16.2 RED CELL DISTRIBUTION WIDTH SD (test code=RDW-SD) 53.3 fL 37.0-51.0 PLATELET COUNT (test code=PLT) 324 K/mm3 150-450 MEAN PLATELET VOLUME (test code=MPV) 10.0 fL 6.7-11.0 NEUTROPHIL % (test code=NT%) 93.6 % 39.0-69.0 IMMATURE GRANULOCYTE % (test code=IG%) 0.8 % 0.0-5.0 LYMPHOCYTE % (test code=LY%) 3.2 % 25.0-55.0 MONOCYTE % (test code=MO%) 2.3 % 0.0-10.0 EOSINOPHIL % (test code=EO%) 0.0 % 0.0-5.0 BASOPHIL % (test code=BA%) 0.1 % 0.0-1.0 NUCLEATED RBC % (test code=NRBC%) 0.0 % 0-0 NEUTROPHIL # (test code=NT#) 13.25 K/mm3 1.8-7.7 IMMATURE GRANULOCYTE # (test code=IG#) 0.11 x10 3/uL 0-0.03 LYMPHOCYTE # (test code=LY#) 0.46 K/mm3 1.0-5.0 MONOCYTE # (test code=MO#) 0.33 K/mm3 0-0.8 EOSINOPHIL # (test code=EO#) 0.00 K/mm3 0.0-0.5 BASOPHIL # (test code=BA#) 0.01 K/mm3 0.0-0.2 NUCLEATED RBC # (test code=NRBC#) 0.00 K/mm3 0.0-0.1 MANUAL DIFF REQUIRED (test code=MDIFF) NO, ONLY SCAN NEEDED DIFFERENTIAL [id number] 12:16:00* Test Item Value Reference Range Comments STAIN ACCEPTABILITY (test code=STN ACCEPTABLE) CABOT RINGS (test code=CAB) MORPHOLOGY COMMENT (test code=MOC) PLATELET ESTIMATE (test code=PLTEST) PLATELET MORPHOLOGY (test code=PLTMORPH) CBC W/AUTO [id number] 12:16:00* Test Item Value Reference Range Comments WHITE BLOOD CELL (test code=WBC) 14.2 K/mm3 4.5-12.5 RED BLOOD CELL (test code=RBC) 5.23 mill/mm3 3.7-5.2 HEMOGLOBIN (test code=HGB) 11.5 gram/dL 11.5-15.5 HEMATOCRIT (test code=HCT) 40.6 % 36.0-46.0 MEAN CELL VOLUME (test code=MCV) 77.6 fL 80-98 MEAN CELL HGB (test code=MCH) 22.0 picogram 27.0-33.0 MEAN CELL HGB CONCETRATION (test code=MCHC) 28.3 gram/dL 33.0-36.0 RED CELL DISTRIBUTION WIDTH (test code=RDW) 19.5 % 11.6-16.2 RED CELL DISTRIBUTION WIDTH SD (test code=RDW-SD) 53.3 fL 37.0-51.0 PLATELET COUNT (test code=PLT) 324 K/mm3 150-450 MEAN PLATELET VOLUME (test code=MPV) 10.0 fL 6.7-11.0 NEUTROPHIL % (test code=NT%) 93.6 % 39.0-69.0 IMMATURE GRANULOCYTE % (test code=IG%) 0.8 % 0.0-5.0 LYMPHOCYTE % (test code=LY%) 3.2 % 25.0-55.0 MONOCYTE % (test code=MO%) 2.3 % 0.0-10.0 EOSINOPHIL % (test code=EO%) 0.0 % 0.0-5.0 BASOPHIL % (test code=BA%) 0.1 % 0.0-1.0 NUCLEATED RBC % (test code=NRBC%) 0.0 % 0-0 NEUTROPHIL # (test code=NT#) 13.25 K/mm3 1.8-7.7 IMMATURE GRANULOCYTE # (test code=IG#) 0.11 x10 3/uL 0-0.03 LYMPHOCYTE # (test code=LY#) 0.46 K/mm3 1.0-5.0 MONOCYTE # (test code=MO#) 0.33 K/mm3 0-0.8 EOSINOPHIL # (test code=EO#) 0.00 K/mm3 0.0-0.5 BASOPHIL # (test code=BA#) 0.01 K/mm3 0.0-0.2 NUCLEATED RBC # (test code=NRBC#) 0.00 K/mm3 0.0-0.1 MANUAL DIFF REQUIRED (test code=MDIFF) NO, ONLY SCAN NEEDED DIFFERENTIAL [id number] 12:16:00* Test Item Value Reference Range Comments STAIN ACCEPTABILITY (test code=STN ACCEPTABLE) MORPHOLOGY COMMENT (test code=MOC) PLATELET ESTIMATE (test code=PLTEST) PLATELET MORPHOLOGY (test code=PLTMORPH) CBC W/AUTO [id number] 12:16:00* Test Item Value Reference Range Comments WHITE BLOOD CELL (test code=WBC) 14.2 K/mm3 4.5-12.5 RED BLOOD CELL (test code=RBC) 5.23 mill/mm3 3.7-5.2 HEMOGLOBIN (test code=HGB) 11.5 gram/dL 11.5-15.5 HEMATOCRIT (test code=HCT) 40.6 % 36.0-46.0 MEAN CELL VOLUME (test code=MCV) 77.6 fL 80-98 MEAN CELL HGB (test code=MCH) 22.0 picogram 27.0-33.0 MEAN CELL HGB CONCETRATION (test code=MCHC) 28.3 gram/dL 33.0-36.0 RED CELL DISTRIBUTION WIDTH (test code=RDW) 19.5 % 11.6-16.2 RED CELL DISTRIBUTION WIDTH SD (test code=RDW-SD) 53.3 fL 37.0-51.0 PLATELET COUNT (test code=PLT) 324 K/mm3 150-450 MEAN PLATELET VOLUME (test code=MPV) 10.0 fL 6.7-11.0 NEUTROPHIL % (test code=NT%) 93.6 % 39.0-69.0 IMMATURE GRANULOCYTE % (test code=IG%) 0.8 % 0.0-5.0 LYMPHOCYTE % (test code=LY%) 3.2 % 25.0-55.0 MONOCYTE % (test code=MO%) 2.3 % 0.0-10.0 EOSINOPHIL % (test code=EO%) 0.0 % 0.0-5.0 BASOPHIL % (test code=BA%) 0.1 % 0.0-1.0 NUCLEATED RBC % (test code=NRBC%) 0.0 % 0-0 NEUTROPHIL # (test code=NT#) 13.25 K/mm3 1.8-7.7 IMMATURE GRANULOCYTE # (test code=IG#) 0.11 x10 3/uL 0-0.03 LYMPHOCYTE # (test code=LY#) 0.46 K/mm3 1.0-5.0 MONOCYTE # (test code=MO#) 0.33 K/mm3 0-0.8 EOSINOPHIL # (test code=EO#) 0.00 K/mm3 0.0-0.5 BASOPHIL # (test code=BA#) 0.01 K/mm3 0.0-0.2 NUCLEATED RBC # (test code=NRBC#) 0.00 K/mm3 0.0-0.1 MANUAL DIFF REQUIRED (test code=MDIFF) NO, ONLY SCAN NEEDED DIFFERENTIAL [id number] 12:16:00* Test Item Value Reference Range Comments STAIN ACCEPTABILITY (test code=STN ACCEPTABLE) CABOT RINGS (test code=CAB) MORPHOLOGY COMMENT (test code=MOC) PLATELET ESTIMATE (test code=PLTEST) PLATELET MORPHOLOGY (test code=PLTMORPH) - CT HEAD/BRAIN W/O [id number] 12:13:00 Name: EULALIA [facility]LSON [facility] : 1940 Age/S: 77 / F [address] [facility] Unit #: [id number] Loc: [place] [address] Phys: Felicity Storey MD Acct: [id number] Dis Date: Status: REG ER PHONE #: [phone] Exam Date: 03/19/2018 1205 FAX #: [phone] Reason: dizziness, vomiting EXAMS: CPT CODE: [id number] CT HEAD/BRAIN W/O CONT [id number] HISTORY: Dizziness and vomiting. COMPARISON: June 05, 2016. CT brain without contrast: Automated exposure control. No acute intracranial bleeds or extra-axial collections are noted. No acute territorial vascular infarction is noted. The sulci, gyri, ventricles and subarachnoid spaces and the basilar cisterns are normal for patient's age. No herniation or hydrocephalus or midline shift is noted. Mild periventricular ischemic gliosis is noted. Age-appropriate atrophy is noted as well. Portions of the visualized paranasal sinuses are normal. No obvious bony calvarial defect is noted. IMPRESSION: No acute intracranial bleeds or extra-axial collections. No acute territorial vascular infarction. No herniation or hydrocephalus or midline shift. 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 at 1213 Reported and signed by: Carl Reyes M.D. CC: Hitesh Parker MD; Felicity Storey MD Technologist:Niko Canales RT(R),(MR),(CT) CTDI: DLP: Trnscb Date/Time: 03/19/2018 (1213) t.[email or web address].[email or web address] Orig Print D/T: S: 03/19/2018 (2986) CTDI: DLP: PAGE 1 Signed Report CBC W/AUTO DIFF 2018-03-19 12:11:00* Test Item Value Reference Range Comments WHITE BLOOD CELL (test code=WBC) K/mm3 4.5-12.5 RED BLOOD CELL (test code=RBC) mill/mm3 3.7-5.2 HEMOGLOBIN (test code=HGB) 11.5 gram/dL 11.5-15.5 HEMATOCRIT (test code=HCT) 40.6 % 36.0-46.0 MEAN CELL VOLUME (test code=MCV) fL 80-98 MEAN CELL HGB (test code=MCH) picogram 27.0-33.0 MEAN CELL HGB CONCETRATION (test code=MCHC) gram/dL 33.0-36.0 RED CELL DISTRIBUTION WIDTH (test code=RDW) % 11.6-16.2 RED CELL DISTRIBUTION WIDTH SD (test code=RDW-SD) fL 37.0-51.0 PLATELET COUNT (test code=PLT) K/mm3 150-450 MEAN PLATELET VOLUME (test code=MPV) fL 6.7-11.0 NEUTROPHIL % (test code=NT%) % 39.0-69.0 IMMATURE GRANULOCYTE % (test code=IG%) % 0.0-5.0 LYMPHOCYTE % (test code=LY%) % 25.0-55.0 MONOCYTE % (test code=MO%) % 0.0-10.0 EOSINOPHIL % (test code=EO%) % 0.0-5.0 BASOPHIL % (test code=BA%) % 0.0-1.0 NEUTROPHIL # (test code=NT#) K/mm3 1.8-7.7 LYMPHOCYTE # (test code=LY#) K/mm3 1.0-5.0 MONOCYTE # (test code=MO#) K/mm3 0-0.8 EOSINOPHIL # (test code=EO#) K/mm3 0.0-0.5 BASOPHIL # (test code=BA#) K/mm3 0.0-0.2 [id number] 11:22:00* Test Item Value Reference Range Comments GLUBED (test code=GLUBED) 259 mg/dL 74-106 Performed by certified strap cutting machine operator at [facility]
[2018-09-13 10:55] VITALS: BP 132/66
--- NOTE | 2018-09-14 00:01 | Operative Report ---
DATE OF PROCEDURE: 09/13/2018 SURGEON: Adam Camarillo MD PREOPERATIVE DIAGNOSES: 1. A 1.6 x 1.4 cm distal left ureteral calculus. 2. Left hydronephrosis. 3. Hematuria. 4. Percutaneous nephrostomy, left side. POSTOPERATIVE DIAGNOSES: 1. A 1.6 x 1.4 cm distal left ureteral calculus. 2. Left hydronephrosis. 3. Hematuria. 4. Percutaneous nephrostomy, left side. PROCEDURES: 1. Left-sided ureteroscopy with stone manipulation (entirely separate procedure with explicit purpose of sending stones for analysis, not required for laser lithotripsy). 2. Left-sided ureteroscopy with laser lithotripsy and stent placement (entirely separate procedure to debulk the extremely large left ureteral calculus). 3. Supervision of fluoroscopy for both ureteroscopy and stent insertion portions. 4. Interpretation of retrograde ureteropyelography. ANESTHESIA: General. ESTIMATED BLOOD LOSS: Minimal. COMPLICATIONS: None. INDICATIONS FOR PROCEDURE: Mrs. Hardwick is a 77-year-old female with a history of left nephrostomy placed for obstructed infected left ureteral calculus. The patient and I had a long discussion about alternatives, risks, and benefits, she elected proceed with ureteroscopy. PROCEDURE IN DETAIL: After informed consent was obtained, the patient was taken to the operative suite, placed supine on the operating table. She underwent general anesthesia by Anesthesia Service. She was placed in the dorsal lithotomy position, sterilely prepped and draped in standard fashion for cystoscopy. A 22.5-Latvian cystoscope was inserted per urethra. Normal urethra was noted. Panendoscopy of bladder revealed no tumors, no stones. Left ureteral stones seen. There was no urine screening. Attempts were made to catheterize the ureter and advanced the wire, this failed. Ureteroscope was then advanced to the level of ascending stone without a wire. Utilizing a 365 micron laser fiber, a path was cleared stone. The guidewire was then inserted and ureteroscope was reintroduced. Laser was continued until multiple small fragments were achieved. The ureter was extremely tortuous and massively dilated secondary to chronic obstruction. Multiple stone fragments were basket extracted and passed off the table for explicit purpose of sending stones for analysis. Should not require for laser lithotripsy at this time. . A 7 x 24 ureteral stent was deployed with a coil in the renal pelvis and a coil in the bladder. The bladder was drained. The patient was awakened anesthesia and transported to recovery room in excellent condition with expectations to return for staged second-look. Supervision of fluoroscopy, interpretation of retrograde pyelography: I was present for the entire procedure and supervised fluoroscopy. There was no radiologist present. Retrograde pyelogram performed to the left collecting system revealing a massively dilated left ureter and collecting system. Left ureteral stent in adequate position, nephrostomy in adequate position. MD ALEX Schilling/MODL /[id number]
== END | disposition home or self-care (01) ==
LOC: OR 06:24
PROVIDERS: ATTEND Urology
DX: N20.1 Calculus of ureter (principal); N13.30 Unspecified hydronephrosis; Z93.6 Other artificial openings of urinary tract status; N13.8 Other obstructive and reflux uropathy; R03.0 Elevated blood-pressure reading, without diagnosis of hypertension; E11.9 Type 2 diabetes mellitus without complications; I48.91 Unspecified atrial fibrillation; Z01.810 Encounter for preprocedural cardiovascular examination; Z01.812 Encounter for preprocedural laboratory examination; Z01.818 Encounter for other preprocedural examination; Z79.82 Long term (current) use of aspirin; Z79.84 Long term (current) use of oral hypoglycemic drugs; Z79.02 Long term (current) use of antithrombotics/antiplatelets; Z85.118 Personal history of other malignant neoplasm of bronchus and lung; Z92.3 Personal history of irradiation
CPT/HCPCS: 36415 ×2; 52356; 71046; 74018; 74420; 80048; 82948; 85025; 88300; 93005; C1758; C2617; J1100; J1580; J2001; J2405; J2704; J3010; Q9967